=== PATIENT | male | born 1935 | race Caucasian/White ===

== ENCOUNTER 2017-03-18 16:06 | Inpatient (IN) | payer MEDICARE, MEDICAID ==
[2017-03-18 16:06] VITALS: BMI 33.4
[2017-03-18] MEDS ORDERED: Piperacill/Tazo 3.375gm in Dex 3.375 GM/50 ML BAG IVPB STA (16:26)
--- NOTE | 2017-03-18 16:44 | ED PDOC ---
HPI: General Adult Time Seen by Provider: 03/18/17 16:15 Chief Complaint (Nursing): Lower Extremity Problem/Injury History Per: Patient Additional Complaint(s): Pt. with his son in ED and states they were sent to ED by Dr. Cuellar from his office as pt. has osteomyelitis on the L foot. Pt. has had worsening ulcer. Denies fever, trauma. Past Medical History Reviewed: Historical Data, Nursing Documentation, Vital Signs Vital Signs: Last Vital Signs Temp 96.9 F L 03/18/17 16:08 Pulse 113 H 03/18/17 16:08 Resp 16 03/18/17 16:08 BP 149/65 03/18/17 16:08 Pulse Ox 97 03/18/17 19:16 - Medical History PMH: Arthritis, CAD, Diabetes, HTN, Hypercholesterolemia, Hypothyroidism Denies: Chronic Kidney Disease - Surgical History Surgical History: Cholecystectomy - Family History Family History: States: Unknown Family Hx - Immunization History Hx Tetanus Toxoid Vaccination: No Hx Influenza Vaccination: No Hx Pneumococcal Vaccination: No - Home Medications Home Medications: Ambulatory Orders Medication Instructions Recorded Aspirin [Ecotrin] 81 mg PO DAILY 03/18/17 Ergocalciferol (Vitamin D2) 50,000 unit PO FR 03/18/17 [Vitamin D2] Furosemide [Lasix] 20 mg PO DAILY 03/18/17 Levothyroxine [Synthroid] 100 mcg PO DAILY 03/18/17 Losartan [Cozaar] 100 mcg PO DAILY 03/18/17 Metoprolol Tartrate [Lopressor] 12.5 mg PO Q12H 03/18/17 Rosuvastatin Calcium [Crestor] 10 mg PO HS 03/18/17 Ticagrelor [Brilinta] 90 mg PO BID 03/18/17 metFORMIN [glucOPHAGE] 850 mg PO BID 03/18/17 - Allergies Allergies/Adverse Reactions: Allergies Allergy/AdvReac Type Severity Reaction Status Date / Time No Known Allergies Allergy Verified 10/21/16 18:17 Review of Systems ROS Statement: Except As Marked, All Systems Reviewed And Found Negative Physical Exam - Reviewed Nursing Documentation Reviewed: Yes Vital Signs Reviewed: Yes - Physical Exam Appears: Positive for: Well, Non-toxic, No Acute Distress Head Exam: Positive for: ATRAUMATIC, NORMAL INSPECTION, NORMOCEPHALIC Skin: Positive for: Normal Color, Warm. Negative for: Rash Eye Exam: Positive for: EOMI, Normal appearance, PERRL ENT: Positive for: Normal ENT Inspection Neck: Positive for: Normal, Painless ROM Cardiovascular/Chest: Positive for: Regular Rate, Rhythm Respiratory: Positive for: CNT, Normal Breath Sounds Pulses-Dorsalis Pedis (L): 2+ Pulses-Dorsalis Pedis (R): 2+ Gastrointestinal/Abdominal: Positive for: Normal Exam, Soft. Negative for: Tenderness Back: Positive for: Normal Inspection Extremity: Positive for: Other (L foot with all toes amputated; non-healing ulcer noted on L lateral distal foot with minimal surrounding erythema but no discharge; malodor noted) Neurologic/Psych: Positive for: Alert, Oriented - Laboratory Results Result Diagrams: 03/18/17 17:38 03/18/17 17:38 - ECG ECG: Positive for: Interpreted By Me ECG Rhythm: Positive for: Sinus Tachycardia. Negative for: ST/T Changes Rate: 101 O2 Sat by Pulse Oximetry: 97 - Progress ED Course And Treament: CXR: NAD, L foot x-ray: ? osteo on distal L 5th MTP Case d/w Dr. Sneed, pt.'s PMD is Dr. Patricia Wise, and arrangements made for admission. Pt. evaluated by [place], podiatry resident, who spoke with Dr. Cuellar who requests only Zosyn/Vancomycin and consults with Dr. Palma (ID) and Dr. Gibson ( vascular). Disposition - Clinical Impression Clinical Impression: Acute renal failure, Diabetic foot ulcer, Cellulitis - Patient ED Disposition Is Patient to be Admitted: Yes - Disposition Disposition Time: 18:24 Condition: STABLE
--- NOTE | 2017-03-18 17:13 | RAD ---
HISTORY: clearance COMPARISON: No prior. FINDINGS: LUNGS: The lungs are clear. PLEURA: No significant pleural effusion identified, no pneumothorax apparent. CARDIOVASCULAR: Normal. OSSEOUS STRUCTURES: No significant abnormalities. VISUALIZED UPPER ABDOMEN: Normal. OTHER FINDINGS: None. IMPRESSION: No active pulmonary disease.
--- NOTE | 2017-03-18 17:16 | RAD ---
PROCEDURE: Left Foot Radiographs. HISTORY: infection COMPARISON: None. 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 There is apparent lucency and cortical irregularity in the distal aspect of the 5th metatarsal. No acute fracture. JOINTS: Normal. SOFT TISSUES: There is moderate soft tissue swelling in the forefoot. OTHER FINDINGS: Atherosclerotic vascular calcifications are present. IMPRESSION: Question of osteomyelitis in the distal 5th metatarsal. Soft tissue swelling in the forefoot may represent cellulitis.
[2017-03-18 17:45] LABS: BASO # 0.1 K/uL (0.0-0.2); BASO % 0.7 % (0.0-2.0); EOS # 0.3 K/uL (0.0-0.7); EOS % 2.2 % (0.0-4.0); HEMATOCRIT 39.4 % (35.0-51.0); LYMPH # 3.2 K/uL (1.0-4.3); MEAN CELL VOLUME 71.6 fl (80.0-94.0); MEAN CORPUSCULAR HGB CONC 32.1 g/dL (33.0-37.0); MEAN PLATELET VOLUME 8.3 fl (7.2-11.7); MONO # 1.4 K/uL (0.0-0.8); MONO % 10.3 % (0.0-10.0); NEUT # 8.3 K/uL (1.8-7.0); NEUT % 62.8 % (50.0-75.0); NRBC % 0.1 % (0.0-0.0); RED CELL DISTRIBUTION WIDTH 16.3 % (11.5-14.5); WHITE BLOOD COUNT 13.2 K/uL (4.8-10.8)
[2017-03-18 17:49] LABS: VENOUS BLOOD GAS BASE EXCESS 0.8 mmol/L (0.0-2.0); VENOUS BLOOD GAS PCO2 46 mmHg (40-60); VENOUS BLOOD PH 7.37 (7.32-7.43)
[2017-03-18 18:02] LABS: BILIRUBIN,TOTAL 0.6 mg/dl (0.2-1.3); CALCIUM 9.6 mg/dL (8.4-10.2); POTASSIUM 4.1 MMOL/L (3.6-5.0)
--- NOTE | 2017-03-18 18:39 | CP.PCM.CON ---
History of Present Illness - History of Present Illness History of Present Illness: 81 year old male with PMH Arthritis, CAD, Diabetes, HTN, Hypercholesterolemia, Hypothyroidism sent to ED by Dr. Cuellar for OM of L foot secondary to infected ulceration. Patient is a poor historian and shows confusion with questioning. Per Dr. Cuellar, patient is to be admitted to floors for IV abx and possible surgical intervention. Past Patient History - Infectious Disease Hx of Infectious Diseases: None - Tetanus Immunizations Tetanus Immunization: Unknown - Past Medical History & Family History Past Medical History?: Yes - Past Social History Smoking Status: Former Smoker - CARDIAC Hx Hypercholesterolemia: Yes Hx Hypertension: Yes - PULMONARY Hx Respiratory Disorders: No - NEUROLOGICAL HX Cerebrovascular Accident: Yes - HEENT Hx HEENT Problems: Yes (glasses) Hx Cataracts: Yes (right) - RENAL Hx Chronic Kidney Disease: No - ENDOCRINE/METABOLIC Hx Hypothyroidism: Yes - HEMATOLOGICAL/ONCOLOGICAL Hx Blood Disorders: No - INTEGUMENTARY Hx Dermatological Problems: No - MUSCULOSKELETAL/RHEUMATOLOGICAL Hx Arthritis: Yes - GASTROINTESTINAL Hx Gastrointestinal Disorders: No - GENITOURINARY/GYNECOLOGICAL Hx Genitourinary Disorders: Yes (BPH) Hx Incontinence: Yes Hx Prostate Problems: Yes (prostate surgery in 2013) - PSYCHIATRIC Hx Substance Use: No - SURGICAL HISTORY Hx Cholecystectomy: Yes - ANESTHESIA Hx Anesthesia: Yes Hx Anesthesia Reactions: No Hx Malignant Hyperthermia: No Meds Allergies/Adverse Reactions: Allergies Allergy/AdvReac Type Severity Reaction Status Date / Time No Known Allergies Allergy Verified 10/21/16 18:17 Physical Exam - Constitutional Appears: Well, Non-toxic, No Acute Distress - Extremities Exam Additional comments: LE focused exam: Vasc: DP/PT pulses nonpalpable b/l. Skin temperature warm to cool from proximal to distal. CFT > 3 seconds. Edema noted to left foot at distal, lateral TMA site Neuro: Epicritic and protective sensation grossly diminished Derm: Open wound measuring approximately 2 cm x 3 cm x 0.3 cm noted to lateral left foot. Fibrous base noted with serous drainage. Mild malodor present. Erythematous periwound area noted. No undermining, tunneling, tracking or probe to bone detected. Second wound at coaptation line of L foot TMA noted distally. Wound is bleeding. Erythematous periwound area noted. No undermining, tunneling , tracking or probe to bone detected. MSK: POP noted to both wounds of left foot. Hx of TMA noted L foot - Neurological Exam Neurological exam: Alert - Psychiatric Exam Psychiatric exam: Normal Affect, Normal Mood Results - Vital Signs Recent Vital Signs: Last Vital Signs Temp 96.9 F L 03/18/17 16:08 Pulse 113 H 03/18/17 16:08 Resp 16 03/18/17 16:08 BP 149/65 03/18/17 16:08 Pulse Ox 97 03/18/17 18:24 - Labs Result Diagrams: 03/18/17 17:38 03/18/17 17:38 Labs: Laboratory Results - last 24 hr 03/18/17 03/18/17 03/18/17 17:38 17:38 17:46 WBC 13.2 H RBC 5.50 Hgb 12.6 Hct 39.4 MCV 71.6 L MCH 23.0 L MCHC 32.1 L RDW 16.3 H Plt Count 218 MPV 8.3 Neut % (Auto) 62.8 Lymph % (Auto) 24.0 [place] % (Auto) 10.3 H Eos % (Auto) 2.2 Baso % (Auto) 0.7 Neut # 8.3 H Lymph # 3.2 [place] # 1.4 H Eos # 0.3 Baso # 0.1 pO2 18 L VBG pH 7.37 VBG pCO2 46 VBG HCO3 23.6 VBG Total CO2 28.0 VBG O2 Sat (Calc) 30.3 L VBG Base Excess 0.8 VBG Potassium 4.1 Glucose 125 H Lactate 2.0 FiO2 21.0 Sodium 138 134.0 Potassium 4.1 Chloride 97 L 98.0 Carbon Dioxide 25 Anion Gap 20 BUN 71 H Creatinine 1.6 H Est GFR ( Amer) 50 Est GFR (Non-Af Amer) 42 Random Glucose 121 H Calcium 9.6 Total Bilirubin 0.6 AST 96 H ALT 93 H Alkaline Phosphatase 137 H Total Protein 9.0 H Albumin 4.5 Globulin 4.5 H Albumin/Globulin Ratio 1.0 Venous Blood Potassium 4.1 Assessment & Plan - Assessment and Plan (Free Text) Assessment: 81 year old male seen in ED for infected foot ulcerations of left foot with underlying OM of fifth digit Plan: Patient seen and evaluated at bedside WBC: 13.2, afebrile Plan discussed with attending Dr. Cuellar Xray of left foot reviewed: Possible OM seen in fifth metatarsal, no signs of soft tissue emphysema noted Wound cx taken left foot: pending Renal dose Zosyn started ID consult appreciated Vascular consult appreciated Arterial duplex ordered Patient to be admitted to floors Wound dressed with DSD Patient to be WB as tolerated to left side Podiatry will continue to follow while patient in house - Date & Time Date: 03/18/17 Time: 18:45
[2017-03-18] MEDS: Insulin Lispro (humaLOG) 100 Units/ml Inj SC SCH (22:46)
[2017-03-18] MEDS: Sodium Chloride 0.9% 1,000 ML IV SCH (23:14)
[2017-03-19] MEDS: Piperacillin/Tazobact 3.375 GM in Sodium Chloride 0.9% 100 ML IVPB SCH ×3 (01:02→16:19)
[2017-03-19] MEDS: Levothyroxine 100 MCG TAB PO SCH (06:34)
[2017-03-19] MEDS: Insulin Lispro (humaLOG) 100 Units/ml Inj SC SCH ×4 (06:34→22:25)
[2017-03-19 06:41] LABS: HEMATOCRIT 33.8 % (35.0-51.0); MEAN CELL VOLUME 71.6 fl (80.0-94.0); MEAN CORPUSCULAR HEMOGLOBIN 23.6 pg (27.0-31.0); RED CELL DISTRIBUTION WIDTH 16.2 % (11.5-14.5); WHITE BLOOD COUNT 9.3 K/uL (4.8-10.8)
[2017-03-19 07:42] LABS: BILIRUBIN,TOTAL 0.4 mg/dl (0.2-1.3); CALCIUM 9.1 mg/dL (8.4-10.2); POTASSIUM 3.3 MMOL/L (3.6-5.0); TOTAL PROTEIN 7.7 G/DL (6.3-8.2)
[2017-03-19 08:07] LABS: THYROID STIMULATING HORMONE 1.31 mIU/ML (0.46-4.68)
--- NOTE | 2017-03-19 09:53 | CP.PCM.PN ---
Subjective - Date & Time of Evaluation Date of Evaluation: 03/19/17 Time of Evaluation: 09:51 - Subjective Subjective: 81 year old male with PMH Arthritis, CAD, Diabetes, HTN, Hypercholesterolemia, Hypothyroidism seen at bedside for infected left foot ulceration with underlying OM of fifth metatarsal. Patient states that he is feeling well today and that the pain in his foot is still present but decreased from yesterday. Patient states that he slept well. He is AAO x 3 and NAD, resting comfortably in bed. He denies any N/V/F/C/CP/SOB/posterior calf pain. Patient denies any further pedal complaints at this time Objective - Vital Signs/Intake and Output Vital Signs (last 24 hours): Temp Pulse Resp BP Pulse Ox 97.8 F 75 20 145/77 94 L 03/19/17 08:05 03/19/17 08:24 03/19/17 08:05 03/19/17 08:24 03/19/17 08:05 - Medications Medications: Current Medications Acetaminophen (Tylenol 325mg Tab) 650 mg PO Q6 PRN PRN Reason: Fever >100.4 F Acetaminophen (Tylenol 325mg Tab) 650 mg PO Q6 PRN PRN Reason: Pain, Mild (1-3) Aspirin (Ecotrin) 81 mg PO DAILY [facility] Last Admin: 03/19/17 08:24 Dose: 81 mg Atorvastatin Calcium (Lipitor) 20 mg PO HS [facility] Last Admin: 03/18/17 23:13 Dose: 20 mg Ergocalciferol (Drisdol 50,000 Intl Units Cap) 1 cap PO FR JOSE ANTONIO Heparin Sodium (Porcine) (Heparin) 5,000 units SC Q8 JOSE ANTONIO PRN Reason: Protocol Last Admin: 03/19/17 08:26 Dose: 5,000 units Sodium Chloride (Sodium Chloride 0.9%) 1,000 mls @ 75 mls/hr IV .[id number] [facility] Stop: 03/19/17 22:38 Last Admin: 03/18/17 23:14 Dose: 75 mls/hr Piperacillin Sod/Tazobactam (Sod 3.375 gm/ Sodium Chloride) 100 mls @ 100 mls/ hr IVPB Q8 JOSE ANTONIO PRN Reason: Protocol Last Admin: 03/19/17 08:25 Dose: 100 mls/hr Vancomycin HCl 1 gm/ Sodium (Chloride) 250 mls @ 166.667 mls/hr IVPB DAILY [facility] PRN Reason: Protocol Insulin Human Lispro (Humalog) 0 units SC ACHS [facility] PRN Reason: Protocol Last Admin: 03/19/17 06:34 Dose: Not Given Levothyroxine Sodium (Synthroid) 100 mcg PO DAILY@0630 [facility] Last Admin: 03/19/17 06:34 Dose: Not Given Losartan Potassium (Cozaar) 100 mg PO DAILY [facility] Last Admin: 03/19/17 08:24 Dose: 100 mg Metoprolol Tartrate (Lopressor) 12.5 mg PO Q12H [facility] Last Admin: 03/18/17 23:13 Dose: 12.5 mg Ticagrelor (Brilinta) 90 mg PO BID [facility] Last Admin: 03/19/17 08:23 Dose: 90 mg - Labs Labs: 03/19/17 05:40 03/19/17 05:40 APTT 28.8 Seconds (25.6-37.1) 03/19/17 05:40 - Constitutional Appears: Well, Non-toxic, No Acute Distress - Extremities Exam Additional comments: LE focused exam: Vasc: DP/PT pulses nonpalpable b/l. Skin temperature warm to cool from proximal to distal. CFT > 3 seconds. Edema noted to left foot at distal, lateral TMA site Neuro: Epicritic and protective sensation grossly diminished Derm: Open wound measuring approximately 2 cm x 3 cm x 0.3 cm noted to lateral left foot. Fibrous base noted with serous drainage, decreased from last night. Mild malodor present. Erythematous periwound area noted. No undermining, tunneling, tracking or probe to bone detected. Second wound at coaptation line of L foot TMA noted distally. Wound is no longer bleeding. Erythematous periwound area noted. No undermining, tunneling, tracking or probe to bone detected. MSK: POP noted to both wounds of left foot. Hx of TMA noted L foot - Neurological Exam Neurological Exam: Alert, Awake, Oriented x3 - Psychiatric Exam Psychiatric exam: Normal Affect, Normal Mood Assessment and Plan - Assessment and Plan (Free Text) Assessment: 81 year old male seen in ED for infected foot ulcerations of left foot with underlying OM of fifth metatarsal Plan: Patient seen and evaluated at bedside WBC: trending down at 9.3 today, afebrile Plan discussed with attending Dr. Cuellar 03/18- Xray of left foot reviewed: Possible OM seen in fifth metatarsal, no signs of soft tissue emphysema noted 03/18- Wound cx taken left foot: pending Continue IV abx Vascular consult appreciated 03/18- Arterial duplex ordered: results pending Wound dressed with DSD Patient to be WB as tolerated to left side No surgical intervention planned at this time. Podiatry will continue to follow while patient in house
--- NOTE | 2017-03-19 11:45 | US ---
PROCEDURE: Duplex ultrasound of the left lower extremity arteries. HISTORY: infected diabetic foot ulcer, left COMPARISON: For yesterday left foot radiographs TECHNIQUE: Grayscale and duplex Doppler evaluation of the left common femoral, superficial femoral, popliteal, posterior tibial and dorsalis pedis arteries was performed.. FINDINGS: COMMON FEMORAL ARTERY: Patent. Maximal flow velocity of 36.5 cm/s. SUPERFICIAL FEMORAL ARTERY:Patent. Maximal flow velocity of 58.1 cm/s. POPLITEAL ARTERY:Patent. Maximal flow velocity of 12.8 cm/s. POSTERIOR TIBIAL ARTERY: Flow was not identified in the posterior tibial artery. Blood flow identified in the anterior tibial artery with the peak systolic velocity 22 centimeter/second. DORSALIS PEDIS ARTERY: Not visualized related to overlying bandages. OTHER FINDINGS: None. IMPRESSION: Low flow velocities, monophasic waveforms throughout the left lower extremity. The findings may be the sequela of inflow disease more proximally. . Flow could not be documented in the left posterior tibial artery. There is collateral flow in the anterior tibial artery. Limitations of the current examination: Nondiagnostic assessment of dorsalis pedis artery related to overlying bandages/dressings.
--- NOTE | 2017-03-19 12:13 | CP.PCM.CON ---
History of Present Illness - History of Present Illness History of Present Illness: I was asked to see patient Earlene Sneed. Patient is a 81 year old male with PMH CAD s/p PCI LAD/LCx in October, DM, HTN PAD who presents with ulceration of the fifth metatarsal. The patient is a poor historian. He has ahd attmepted intervention by Dr Pillai in October. He was referred for admission Earlene Cuellar due to the appearance of ulcer of the fifth metatarsal. Review of Systems - Constitutional Constitutional: absent: As Per HPI, Anorexia, Chills, Daytime Sleepiness, Excessive Sweating, Fatigue, Fever, Frequent Falls, Headache, Increased Appetite , Lethargy, Malaise, Night Sweats, Snoring, Sleep Apnea, Weight Gain, Weight Loss, Weakness, Other - EENT Eyes: absent: As Per HPI, Blind Spots, Blurred Vision, Change in Vision, Decreased Night Vision, Diplopia, Discharge, Dry Eye, Exophthalmos, Floaters, Irritation, Itchy Eyes, Loss of Peripheral Vision, Pain, Photophobia, Requires Corrective Lenses, Sees Flashes, Spots in Vision, Tunnel Vision, Other Visual Disturbances, Loss of Vision, Other Ears: absent: As Per HPI, Decreased Hearing, Ear Discharge, Ear Pain, Tinnitus, Abnormal Hearing, Disequilibrium, Dizziness, Other Nose/Mouth/Throat: absent: As Per HPI, Epistaxis, Nasal Congestion, Nasal Discharge, Nasal Obstruction, Nasal Trauma, Nose Pain, Post Nasal Drip, Sinus Pain, Sinus Pressure, Bleeding Gums, Change in Voice, Dental Pain, Dry Mouth, Dysphagia, Halitosis, Hoarsness, Lip Swelling, Mouth Lesions, Mouth Pain, Odynophagia, Sore Throat, Throat Swelling, Tongue Swelling, Facial Pain, Neck Pain, Neck Mass, Other - Cardiovascular Cardiovascular: absent: As Per HPI, Acrocyanosis, Chest Pain, Chest Pain at Rest , Chest Pain with Activity, Claudication, Diaphoresis, Dyspnea, Dyspnea on Exertion, Edema, Irregular Heart Rhythm, Pain Radiating to Arm/Neck/Jaw, Leg Edema, Leg Ulcers, Lightheadedness, Orthopnea, Palpitations, Paroxysmal Nocturnal Dyspnea, Pedal Edema, Radiating Pain, Rapid Heart Rate, Slow Heart Rate, Syncope, Other - Respiratory Respiratory: absent: As Per HPI, Cough, Dyspnea, Hemoptysis, Dyspnea on Exertion , Wheezing, Snoring, Stridor, Pain on Inspiration, Chest Congestion, Excessive Mucous Production, Change in Mucous Color, Pain with Coughing, Other - Gastrointestinal Gastrointestinal: absent: As Per HPI, Abdominal Pain, Belching, Bloating, Change in Bowel Habits, Change in Stool Character, Coffee Ground Emesis, Constipation, Cramping, Diarrhea, Dyspepsia, Dysphagia, Early Satiety, Excessive Flatus, Fecal Incontinence, Heartburn, Hematemesis, Hematochezia, Loose Stools, Melena, Nausea, Odynophagia, Temesmus, Vomiting, Other - Genitourinary Genitourinary: absent: As Per HPI, Change in Urinary Stream, Difficulty Urinating, Dysuria, Flank Pain, Hematuria, Pyuria, Nocturia, Urinary Incontinence, Urinary Frequency, Urinary Hesitance, Urinary Urgency, Voiding Freq/Small Amts, Freq UTI, Hx Renal/Bladder Calculi, Hx /Renal Surgery, Bladder Distension, Other - Musculoskeletal Musculoskeletal: Radiating Pain into Limb - Integumentary Integumentary: absent: As Per HPI, Acne, Alopecia, Bleeding Lesions, Change in Hair, Change in Nails, Change in Pigmentation, Changing Lesions, Dry Skin, Erythema, Furuncle, Hirsutism, Lesions, New Lesions, Non-Healing Lesions, Photosensitivity, Pruritus, Rash, Skin Pain, Skin Ulcer, Sores, Striae, Swelling , Unusual Bruising, Wounds, Jaundice, Other - Neurological Neurological: absent: As Per HPI, Abnormal Gait, Abnormal Hearing, Abnormal Movements, Abnormal Speech, Behavioral Changes, Burning Sensations, Confusion, Convulsions, Disequilibrium, Dizziness, Numbness, Focal Weakness, Frequent Falls , Headaches, Lack of Coordination, Loss of Vision, Memory Loss, Paresthesias, Radicular Pain, Restless Legs, Sensory Deficit, Syncope, Tingling, Tremor, Vertigo, Weakness, Other Visual Disturbances, Other - Psychiatric Psychiatric: absent: As Per HPI, Abnormal Sleep Pattern, Anhedonia, Anxiety, Auditory Hallucinations, Behavioral Changes, Change in Appetite, Change in Libido, Confusion, Depression, Difficulty Concentrating, Hallucinations, Homicidal Ideation, Hopelessness, Irritability, Memory Loss, Mood Swings, Panic Attacks, Paranoia, Suicidal Ideation, Visual Hallucinations, Tactile Hallucinations, Other - Endocrine Endocrine: absent: As Per HPI, Change in Body Appearance, Change in Libido, Cold Intolorance, Deepening of Voice, Excessive Sweating, Fatigue, Flushing, Heat Intolorance, Increase in Ring/Shoe/Hat Size, Palpitations, Polydipsia, Polyphagia, Polyuria, Other - Hematologic/Lymphatic Hematologic: absent: As Per HPI, Easy Bleeding, Easy Bruising, Lymphadenopathy, Other Past Patient History - Infectious Disease Hx of Infectious Diseases: None - Tetanus Immunizations Tetanus Immunization: Unknown - Past Medical History & Family History Past Medical History?: Yes - Past Social History Smoking Status: Never Smoked - CARDIAC Hx Cardiac Disorders: Yes Hx Congestive Heart Failure: Yes Hx Hypercholesterolemia: Yes Hx Hypertension: Yes Other/Comment: peripheral arterial dx - PULMONARY Hx Respiratory Disorders: No Hx Pneumonia: No - NEUROLOGICAL Hx Neurological Disorder: No - HEENT Hx HEENT Problems: Yes (glasses) Hx Cataracts: Yes (right eye) - RENAL Hx Chronic Kidney Disease: No - ENDOCRINE/METABOLIC Hx Endocrine Disorders: Yes Hx Diabetes Mellitus Type 2: Yes Hx Hypothyroidism: Yes - HEMATOLOGICAL/ONCOLOGICAL Hx Blood Disorders: No Hx AIDS: No Hx Hepatitis C: No Hx Human Immunodeficiency Virus (HIV): No - INTEGUMENTARY Hx Dermatological Problems: No - MUSCULOSKELETAL/RHEUMATOLOGICAL Hx Musculoskeletal Disorders: No Hx Falls: No (denies any hx of falls) Hx Fractures: No - GASTROINTESTINAL Hx Gastrointestinal Disorders: No - GENITOURINARY/GYNECOLOGICAL Hx Genitourinary Disorders: Yes (BPH) Hx Incontinence: Yes Hx Prostate Problems: Yes (prostate surgery in 2013) - PSYCHIATRIC Hx Psychophysiologic Disorder: No Hx Substance Use: No - SURGICAL HISTORY Hx Surgeries: Yes Hx Cholecystectomy: Yes Other/Comment: prostate surgery 2013, LEFT ft 1-4th digits amupatated - ANESTHESIA Hx Anesthesia: Yes Hx Anesthesia Reactions: No Hx Malignant Hyperthermia: No Meds Allergies/Adverse Reactions: Allergies Allergy/AdvReac Type Severity Reaction Status Date / Time No Known Allergies Allergy Verified 10/21/16 18:17 - Medications Medications: Current Medications Acetaminophen (Tylenol 325mg Tab) 650 mg PO Q6 PRN PRN Reason: Fever >100.4 F Acetaminophen (Tylenol 325mg Tab) 650 mg PO Q6 PRN PRN Reason: Pain, Mild (1-3) Aspirin (Ecotrin) 81 mg PO DAILY [facility] Last Admin: 03/19/17 08:24 Dose: 81 mg Atorvastatin Calcium (Lipitor) 20 mg PO HS [facility] Last Admin: 03/18/17 23:13 Dose: 20 mg Ergocalciferol (Drisdol 50,000 Intl Units Cap) 1 cap PO FR [facility] Heparin Sodium (Porcine) (Heparin) 5,000 units SC Q8 [facility] PRN Reason: Protocol Last Admin: 03/19/17 08:26 Dose: 5,000 units Sodium Chloride (Sodium Chloride 0.9%) 1,000 mls @ 75 mls/hr IV .[id number] [facility] Stop: 03/19/17 22:38 Last Admin: 03/18/17 23:14 Dose: 75 mls/hr Piperacillin Sod/Tazobactam (Sod 3.375 gm/ Sodium Chloride) 100 mls @ 100 mls/ hr IVPB Q8 [facility] PRN Reason: Protocol Last Admin: 03/19/17 08:25 Dose: 100 mls/hr Vancomycin HCl 1 gm/ Sodium (Chloride) 250 mls @ 166.667 mls/hr IVPB DAILY [facility] PRN Reason: Protocol Insulin Human Lispro (Humalog) 0 units SC ACHS [facility] PRN Reason: Protocol Last Admin: 03/19/17 06:34 Dose: Not Given Levothyroxine Sodium (Synthroid) 100 mcg PO DAILY@0630 [facility] Last Admin: 03/19/17 06:34 Dose: Not Given Losartan Potassium (Cozaar) 100 mg PO DAILY [facility] Last Admin: 03/19/17 08:24 Dose: 100 mg Metoprolol Tartrate (Lopressor) 12.5 mg PO Q12H [facility] Last Admin: 03/18/17 23:13 Dose: 12.5 mg Ticagrelor (Brilinta) 90 mg PO BID [facility] Last Admin: 03/19/17 08:23 Dose: 90 mg Physical Exam - Constitutional Appears: Non-toxic - Head Exam Head Exam: NORMAL INSPECTION - Eye Exam Eye Exam: Normal appearance - ENT Exam ENT Exam: Mucous Membranes Moist - Neck Exam Neck exam: Positive for: Full Rom - Respiratory Exam Respiratory Exam: NORMAL BREATHING PATTERN - Cardiovascular Exam Cardiovascular Exam: REGULAR RHYTHM - GI/Abdominal Exam GI & Abdominal Exam: Normal Bowel Sounds - Rectal Exam Rectal Exam: Deferred - Extremities Exam Additional comments: foot in dressing, heavily bandaged. - Back Exam Back exam: NORMAL INSPECTION - Neurological Exam Neurological exam: Alert - Psychiatric Exam Psychiatric exam: Normal Affect - Skin Skin Exam: Normal Color Results - Vital Signs Recent Vital Signs: Last Vital Signs Temp 97.8 F 03/19/17 08:05 Pulse 75 03/19/17 08:24 Resp 20 03/19/17 08:05 BP 145/77 03/19/17 08:24 Pulse Ox 94 L 03/19/17 08:05 - Labs Result Diagrams: 03/19/17 05:40 03/19/17 05:40 Labs: Laboratory Results - last 24 hr 03/18/17 03/18/17 03/18/17 17:38 17:38 17:46 WBC 13.2 H RBC 5.50 Hgb 12.6 Hct 39.4 MCV 71.6 L MCH 23.0 L MCHC 32.1 L RDW 16.3 H Plt Count 218 MPV 8.3 Neut % (Auto) 62.8 Lymph % (Auto) 24.0 Coal % (Auto) 10.3 H Eos % (Auto) 2.2 Baso % (Auto) 0.7 Neut # 8.3 H Lymph # 3.2 Coal # 1.4 H Eos # 0.3 Baso # 0.1 ESR APTT pO2 18 L VBG pH 7.37 VBG pCO2 46 VBG HCO3 23.6 VBG Total CO2 28.0 VBG O2 Sat (Calc) 30.3 L VBG Base Excess 0.8 VBG Potassium 4.1 Glucose 125 H Lactate 2.0 FiO2 21.0 Sodium 138 134.0 Potassium 4.1 Chloride 97 L 98.0 Carbon Dioxide 25 Anion Gap 20 BUN 71 H Creatinine 1.6 H Est GFR ( Amer) 50 Est GFR (Non-Af Amer) 42 POC Glucose (mg/dL) Random Glucose 121 H Calcium 9.6 Total Bilirubin 0.6 AST 96 H ALT 93 H Alkaline Phosphatase 137 H Total Protein 9.0 H Albumin 4.5 Globulin 4.5 H Albumin/Globulin Ratio 1.0 Triglycerides Cholesterol LDL Cholesterol Direct HDL Cholesterol TSH 3rd Generation Venous Blood Potassium 4.1 Blood Type Antibody Screen BBK History Checked 03/18/17 03/18/17 03/19/17 19:54 22:28 05:40 WBC RBC Hgb Hct MCV MCH MCHC RDW Plt Count MPV Neut % (Auto) Lymph % (Auto) Coal % (Auto) Eos % (Auto) Baso % (Auto) Neut # Lymph # Coal # Eos # Baso # ESR APTT 28.8 pO2 VBG pH VBG pCO2 VBG HCO3 VBG Total CO2 VBG O2 Sat (Calc) VBG Base Excess VBG Potassium Glucose Lactate FiO2 Sodium Potassium Chloride Carbon Dioxide Anion Gap BUN Creatinine Est GFR ( Amer) Est GFR (Non-Af Amer) POC Glucose (mg/dL) 134 H Random Glucose Calcium Total Bilirubin AST ALT Alkaline Phosphatase Total Protein Albumin Globulin Albumin/Globulin Ratio Triglycerides Cholesterol LDL Cholesterol Direct HDL Cholesterol TSH 3rd Generation Venous Blood Potassium Blood Type B POSITIVE Antibody Screen Negative BBK History Checked Patient has bt 03/19/17 03/19/17 03/19/17 05:40 05:40 05:57 WBC 9.3 RBC 4.73 Hgb 11.2 L Hct 33.8 L MCV 71.6 L MCH 23.6 L MCHC 33.0 RDW 16.2 H Plt Count 177 MPV Neut % (Auto) Lymph % (Auto) Coal % (Auto) Eos % (Auto) Baso % (Auto) Neut # Lymph # Coal # Eos # Baso # ESR 61 H APTT pO2 VBG pH VBG pCO2 VBG HCO3 VBG Total CO2 VBG O2 Sat (Calc) VBG Base Excess VBG Potassium Glucose Lactate FiO2 Sodium 138 Potassium 3.3 L Chloride 102 Carbon Dioxide 23 Anion Gap 16 BUN 66 H Creatinine 1.5 Est GFR ( Amer) 54 Est GFR (Non-Af Amer) 45 POC Glucose (mg/dL) 103 Random Glucose 124 H Calcium 9.1 Total Bilirubin 0.4 AST 70 H D ALT 76 H Alkaline Phosphatase 104 Total Protein 7.7 Albumin 3.8 Globulin 3.9 Albumin/Globulin Ratio 1.0 Triglycerides 111 Cholesterol 94 LDL Cholesterol Direct 33 HDL Cholesterol 28 L TSH 3rd Generation 1.31 Venous Blood Potassium Blood Type Antibody Screen BBK History Checked 03/19/17 12:08 WBC RBC Hgb Hct MCV MCH MCHC RDW Plt Count MPV Neut % (Auto) Lymph % (Auto) Coal % (Auto) Eos % (Auto) Baso % (Auto) Neut # Lymph # Coal # Eos # Baso # ESR APTT pO2 VBG pH VBG pCO2 VBG HCO3 VBG Total CO2 VBG O2 Sat (Calc) VBG Base Excess VBG Potassium Glucose Lactate FiO2 Sodium Potassium Chloride Carbon Dioxide Anion Gap BUN Creatinine Est GFR ( Amer) Est GFR (Non-Af Amer) POC Glucose (mg/dL) 128 H Random Glucose Calcium Total Bilirubin AST ALT Alkaline Phosphatase Total Protein Albumin Globulin Albumin/Globulin Ratio Triglycerides Cholesterol LDL Cholesterol Direct HDL Cholesterol TSH 3rd Generation Venous Blood Potassium Blood Type Antibody Screen BBK History Checked - EKG Data EKG Interpreted by: Myself Assessment & Plan (1) Diabetic foot ulcer Assessment and Plan: will need repeat arterial duplex. will hold off on contrast imaging at this time due to renal insufficiency Status: Acute (2) CKD (chronic kidney disease) stage 3, GFR 30-59 ml/min Assessment and Plan: follow creatinine Status: Acute (3) Coronary artery disease Assessment and Plan: s/p PCI LAD and LCx. continue ASA 81 mg daily, Brilinta 90 mg BID. Status: Chronic (4) Hypertension Assessment and Plan: medical therapy Status: Chronic Priority: Low
[2017-03-19] MEDS: Sodium Chloride 0.9% 1,000 ML IV SCH (16:18)
--- NOTE | 2017-03-19 19:14 | CP.PCM.CON ---
History of Present Illness - History of Present Illness History of Present Illness: chart reviewed consult to follow Past Patient History - Infectious Disease Hx of Infectious Diseases: None - Tetanus Immunizations Tetanus Immunization: Unknown - Past Medical History & Family History Past Medical History?: Yes - Past Social History Smoking Status: Never Smoked - CARDIAC Hx Cardiac Disorders: Yes Hx Congestive Heart Failure: Yes Hx Hypercholesterolemia: Yes Hx Hypertension: Yes Other/Comment: peripheral arterial dx - PULMONARY Hx Respiratory Disorders: No Hx Pneumonia: No - NEUROLOGICAL Hx Neurological Disorder: No - HEENT Hx HEENT Problems: Yes (glasses) Hx Cataracts: Yes (right eye) - RENAL Hx Chronic Kidney Disease: No - ENDOCRINE/METABOLIC Hx Endocrine Disorders: Yes Hx Diabetes Mellitus Type 2: Yes Hx Hypothyroidism: Yes - HEMATOLOGICAL/ONCOLOGICAL Hx Blood Disorders: No Hx AIDS: No Hx Hepatitis C: No Hx Human Immunodeficiency Virus (HIV): No - INTEGUMENTARY Hx Dermatological Problems: No - MUSCULOSKELETAL/RHEUMATOLOGICAL Hx Musculoskeletal Disorders: No Hx Falls: No (denies any hx of falls) Hx Fractures: No - GASTROINTESTINAL Hx Gastrointestinal Disorders: No - GENITOURINARY/GYNECOLOGICAL Hx Genitourinary Disorders: Yes (BPH) Hx Incontinence: Yes Hx Prostate Problems: Yes (prostate surgery in 2013) - PSYCHIATRIC Hx Psychophysiologic Disorder: No Hx Substance Use: No - SURGICAL HISTORY Hx Surgeries: Yes Hx Cholecystectomy: Yes Other/Comment: prostate surgery 2013, LEFT ft 1-4th digits amupatated - ANESTHESIA Hx Anesthesia: Yes Hx Anesthesia Reactions: No Hx Malignant Hyperthermia: No Meds Allergies/Adverse Reactions: Allergies Allergy/AdvReac Type Severity Reaction Status Date / Time No Known Allergies Allergy Verified 10/21/16 18:17 - Medications Medications: Current Medications Acetaminophen (Tylenol 325mg Tab) 650 mg PO Q6 PRN PRN Reason: Fever >100.4 F Acetaminophen (Tylenol 325mg Tab) 650 mg PO Q6 PRN PRN Reason: Pain, Mild (1-3) Aspirin (Ecotrin) 81 mg PO DAILY [facility] Last Admin: 03/19/17 08:24 Dose: 81 mg Atorvastatin Calcium (Lipitor) 20 mg PO HS [facility] Last Admin: 03/18/17 23:13 Dose: 20 mg Ergocalciferol (Drisdol 50,000 Intl Units Cap) 1 cap PO FR [facility] Heparin Sodium (Porcine) (Heparin) 5,000 units SC Q8 [facility] PRN Reason: Protocol Last Admin: 03/19/17 16:21 Dose: 5,000 units Sodium Chloride (Sodium Chloride 0.9%) 1,000 mls @ 75 mls/hr IV .[id number] [facility] Stop: 03/19/17 22:38 Last Admin: 03/19/17 16:18 Dose: 75 mls/hr Piperacillin Sod/Tazobactam (Sod 3.375 gm/ Sodium Chloride) 100 mls @ 100 mls/ hr IVPB Q8 [facility] PRN Reason: Protocol Last Admin: 03/19/17 16:19 Dose: 100 mls/hr Vancomycin HCl 1 gm/ Sodium (Chloride) 250 mls @ 166.667 mls/hr IVPB DAILY [facility] PRN Reason: Protocol Insulin Human Lispro (Humalog) 0 units SC ACHS [facility] PRN Reason: Protocol Last Admin: 03/19/17 16:30 Dose: Not Given Levothyroxine Sodium (Synthroid) 100 mcg PO DAILY@0630 [facility] Last Admin: 03/19/17 06:34 Dose: Not Given Losartan Potassium (Cozaar) 100 mg PO DAILY [facility] Last Admin: 03/19/17 08:24 Dose: 100 mg Metoprolol Tartrate (Lopressor) 12.5 mg PO Q12H [facility] Last Admin: 03/19/17 11:30 Dose: 12.5 mg Ticagrelor (Brilinta) 90 mg PO BID [facility] Last Admin: 03/19/17 16:21 Dose: 90 mg Results - Vital Signs Recent Vital Signs: Last Vital Signs Temp 98.3 F 03/19/17 17:00 Pulse 72 03/19/17 16:28 Resp 18 03/19/17 16:28 BP 138/75 03/19/17 16:28 Pulse Ox 95 03/19/17 16:28 - Labs Result Diagrams: 03/19/17 05:40 03/19/17 05:40 Labs: Laboratory Results - last 24 hr 03/18/17 03/18/17 03/19/17 19:54 22:28 05:40 WBC RBC Hgb Hct MCV MCH MCHC RDW Plt Count ESR APTT 28.8 Sodium Potassium Chloride Carbon Dioxide Anion Gap BUN Creatinine Est GFR ( Amer) Est GFR (Non-Af Amer) POC Glucose (mg/dL) 134 H Random Glucose Hemoglobin A1c Calcium Total Bilirubin AST ALT Alkaline Phosphatase Total Protein Albumin Globulin Albumin/Globulin Ratio Triglycerides Cholesterol LDL Cholesterol Direct HDL Cholesterol TSH 3rd Generation Blood Type B POSITIVE Antibody Screen Negative BBK History Checked Patient has bt 03/19/17 03/19/17 03/19/17 05:40 05:40 05:57 WBC 9.3 RBC 4.73 Hgb 11.2 L Hct 33.8 L MCV 71.6 L MCH 23.6 L MCHC 33.0 RDW 16.2 H Plt Count 177 ESR 61 H APTT Sodium 138 Potassium 3.3 L Chloride 102 Carbon Dioxide 23 Anion Gap 16 BUN 66 H Creatinine 1.5 Est GFR ( Amer) 54 Est GFR (Non-Af Amer) 45 POC Glucose (mg/dL) 103 Random Glucose 124 H Hemoglobin A1c Calcium 9.1 Total Bilirubin 0.4 AST 70 H D ALT 76 H Alkaline Phosphatase 104 Total Protein 7.7 Albumin 3.8 Globulin 3.9 Albumin/Globulin Ratio 1.0 Triglycerides 111 Cholesterol 94 LDL Cholesterol Direct 33 HDL Cholesterol 28 L TSH 3rd Generation 1.31 Blood Type Antibody Screen BBK History Checked 03/19/17 03/19/17 03/19/17 06:53 12:08 16:09 WBC RBC Hgb Hct MCV MCH MCHC RDW Plt Count ESR APTT Sodium Potassium Chloride Carbon Dioxide Anion Gap BUN Creatinine Est GFR ( Amer) Est GFR (Non-Af Amer) POC Glucose (mg/dL) 128 H 137 H Random Glucose Hemoglobin A1c 6.8 H Calcium Total Bilirubin AST ALT Alkaline Phosphatase Total Protein Albumin Globulin Albumin/Globulin Ratio Triglycerides Cholesterol LDL Cholesterol Direct HDL Cholesterol TSH 3rd Generation Blood Type Antibody Screen BBK History Checked
--- NOTE | 2017-03-19 21:29 | CP.PCM.HP ---
Past Patient History - Infectious Disease Hx of Infectious Diseases: None - Tetanus Immunizations Tetanus Immunization: Unknown - Past Medical History & Family History Past Medical History?: Yes - Past Social History Smoking Status: Never Smoked - CARDIAC Hx Cardiac Disorders: Yes Hx Congestive Heart Failure: Yes Hx Hypercholesterolemia: Yes Hx Hypertension: Yes Other/Comment: peripheral arterial dx - PULMONARY Hx Respiratory Disorders: No Hx Pneumonia: No - NEUROLOGICAL Hx Neurological Disorder: No - HEENT Hx HEENT Problems: Yes (glasses) Hx Cataracts: Yes (right eye) - RENAL Hx Chronic Kidney Disease: No - ENDOCRINE/METABOLIC Hx Endocrine Disorders: Yes Hx Diabetes Mellitus Type 2: Yes Hx Hypothyroidism: Yes - HEMATOLOGICAL/ONCOLOGICAL Hx Blood Disorders: No Hx AIDS: No Hx Hepatitis C: No Hx Human Immunodeficiency Virus (HIV): No - INTEGUMENTARY Hx Dermatological Problems: No - MUSCULOSKELETAL/RHEUMATOLOGICAL Hx Musculoskeletal Disorders: No Hx Falls: No (denies any hx of falls) Hx Fractures: No - GASTROINTESTINAL Hx Gastrointestinal Disorders: No - GENITOURINARY/GYNECOLOGICAL Hx Genitourinary Disorders: Yes (BPH) Hx Incontinence: Yes Hx Prostate Problems: Yes (prostate surgery in 2013) - PSYCHIATRIC Hx Psychophysiologic Disorder: No Hx Substance Use: No - SURGICAL HISTORY Hx Surgeries: Yes Hx Cholecystectomy: Yes Other/Comment: prostate surgery 2013, LEFT ft 1-4th digits amupatated - ANESTHESIA Hx Anesthesia: Yes Hx Anesthesia Reactions: No Hx Malignant Hyperthermia: No Meds Allergies/Adverse Reactions: Allergies Allergy/AdvReac Type Severity Reaction Status Date / Time No Known Allergies Allergy Verified 10/21/16 18:17 Results - Vital Signs Recent Vital Signs: Last Vital Signs Temp 98.3 F 03/19/17 17:00 Pulse 72 03/19/17 16:28 Resp 18 03/19/17 16:28 BP 138/75 03/19/17 16:28 Pulse Ox 95 03/19/17 16:28 - Labs Result Diagrams: 03/19/17 05:40 03/19/17 05:40 Labs: Laboratory Results - last 24 hr 03/18/17 03/19/17 03/19/17 22:28 05:40 05:40 WBC 9.3 RBC 4.73 Hgb 11.2 L Hct 33.8 L MCV 71.6 L MCH 23.6 L MCHC 33.0 RDW 16.2 H Plt Count 177 ESR 61 H APTT 28.8 Sodium Potassium Chloride Carbon Dioxide Anion Gap BUN Creatinine Est GFR ( Amer) Est GFR (Non-Af Amer) POC Glucose (mg/dL) 134 H Random Glucose Hemoglobin A1c Calcium Total Bilirubin AST ALT Alkaline Phosphatase Total Protein Albumin Globulin Albumin/Globulin Ratio Triglycerides Cholesterol LDL Cholesterol Direct HDL Cholesterol TSH 3rd Generation 03/19/17 03/19/17 03/19/17 05:40 05:57 06:53 WBC RBC Hgb Hct MCV MCH MCHC RDW Plt Count ESR APTT Sodium 138 Potassium 3.3 L Chloride 102 Carbon Dioxide 23 Anion Gap 16 BUN 66 H Creatinine 1.5 Est GFR ( Amer) 54 Est GFR (Non-Af Amer) 45 POC Glucose (mg/dL) 103 Random Glucose 124 H Hemoglobin A1c 6.8 H Calcium 9.1 Total Bilirubin 0.4 AST 70 H D ALT 76 H Alkaline Phosphatase 104 Total Protein 7.7 Albumin 3.8 Globulin 3.9 Albumin/Globulin Ratio 1.0 Triglycerides 111 Cholesterol 94 LDL Cholesterol Direct 33 HDL Cholesterol 28 L TSH 3rd Generation 1.31 03/19/17 03/19/17 03/19/17 12:08 16:09 20:49 WBC RBC Hgb Hct MCV MCH MCHC RDW Plt Count ESR APTT Sodium Potassium Chloride Carbon Dioxide Anion Gap BUN Creatinine Est GFR ( Amer) Est GFR (Non-Af Amer) POC Glucose (mg/dL) 128 H 137 H 121 H Random Glucose Hemoglobin A1c Calcium Total Bilirubin AST ALT Alkaline Phosphatase Total Protein Albumin Globulin Albumin/Globulin Ratio Triglycerides Cholesterol LDL Cholesterol Direct HDL Cholesterol TSH 3rd Generation
--- NOTE | 2017-03-19 22:07 | CARD ---
APPROVED REPORT EKG Measurement Heart [id number] <Conclusion> Sinus tachycardia Possible Left atrial enlargement Left ventricular hypertrophy with repolarization abnormality Abnormal ECG
[2017-03-20] MEDS: Piperacillin/Tazobact 3.375 GM in Sodium Chloride 0.9% 100 ML IVPB SCH ×3 (00:34→16:24)
[2017-03-20] MEDS: Levothyroxine 100 MCG TAB PO SCH (06:02)
[2017-03-20] MEDS: Insulin Lispro (humaLOG) 100 Units/ml Inj SC SCH ×4 (06:34→22:23)
--- NOTE | 2017-03-20 09:36 | CP.PCM.PN ---
Subjective - Date & Time of Evaluation Date of Evaluation: 03/20/17 Time of Evaluation: 09:34 - Subjective Subjective: 81 year old male with PMH Arthritis, CAD, Diabetes, HTN, Hypercholesterolemia, Hypothyroidism seen at bedside for infected left foot ulceration with underlying OM of fifth metatarsal. Patient states that he is feeling well today and that the pain in his foot is still present but decreased from yesterday. Patient is found sleeping soundly in bed at time of visit. He is AAO x 3 and NAD , resting comfortably in bed. He denies any N/V/F/C/CP/SOB/posterior calf pain. Patient denies any further pedal complaints at this time Objective - Vital Signs/Intake and Output Vital Signs (last 24 hours): Temp Pulse Resp BP Pulse Ox 97.9 F 78 20 171/72 H 96 03/20/17 07:56 03/20/17 09:13 03/20/17 07:56 03/20/17 09:13 03/20/17 07:56 - Medications Medications: Current Medications Acetaminophen (Tylenol 325mg Tab) 650 mg PO Q6 PRN PRN Reason: Fever >100.4 F Acetaminophen (Tylenol 325mg Tab) 650 mg PO Q6 PRN PRN Reason: Pain, Mild (1-3) Last Admin: 03/20/17 00:28 Dose: 650 mg Aspirin (Ecotrin) 81 mg PO DAILY [facility] Last Admin: 03/20/17 09:14 Dose: 81 mg Atorvastatin Calcium (Lipitor) 20 mg PO HS [facility] Last Admin: 03/19/17 21:21 Dose: 20 mg Ergocalciferol (Drisdol 50,000 Intl Units Cap) 1 cap PO FR [facility] Heparin Sodium (Porcine) (Heparin) 5,000 units SC Q8 [facility] PRN Reason: Protocol Last Admin: 03/20/17 09:14 Dose: 5,000 units Piperacillin Sod/Tazobactam (Sod 3.375 gm/ Sodium Chloride) 100 mls @ 100 mls/ hr IVPB Q8 [facility] PRN Reason: Protocol Last Admin: 03/20/17 00:34 Dose: 100 mls/hr Vancomycin HCl 1 gm/ Sodium (Chloride) 250 mls @ 166.667 mls/hr IVPB DAILY@ 2200 [facility] PRN Reason: Protocol Last Admin: 03/19/17 23:04 Dose: 166.667 mls/hr Insulin Human Lispro (Humalog) 0 units SC ACHS [facility] PRN Reason: Protocol Last Admin: 03/20/17 06:34 Dose: Not Given Levothyroxine Sodium (Synthroid) 100 mcg PO DAILY@0630 [facility] Last Admin: 03/20/17 06:02 Dose: 100 mcg Losartan Potassium (Cozaar) 100 mg PO DAILY [facility] Last Admin: 03/20/17 09:13 Dose: 100 mg Metoprolol Tartrate (Lopressor) 12.5 mg PO Q12H [facility] Last Admin: 03/19/17 22:24 Dose: 12.5 mg Mupirocin (Bactroban Ointment) 1 applic TOP BID [facility] Ticagrelor (Brilinta) 90 mg PO BID [facility] Last Admin: 03/20/17 09:13 Dose: 90 mg - Labs Labs: 03/19/17 05:40 03/19/17 05:40 APTT 28.8 Seconds (25.6-37.1) 03/19/17 05:40 - Constitutional Appears: Well, Non-toxic, No Acute Distress - Extremities Exam Additional comments: LE focused exam: Vasc: DP/PT pulses nonpalpable b/l. Skin temperature warm to cool from proximal to distal. CFT > 3 seconds. Edema noted to left foot at distal, lateral TMA site , improving Neuro: Epicritic and protective sensation grossly diminished Derm: Open wound measuring approximately 2 cm x 3 cm x 0.3 cm noted to lateral left foot. Fibrous base noted with serous drainage, decreased from last night. Mild malodor present. Erythematous periwound area noted. No undermining, tunneling, tracking or probe to bone detected. Second wound at coaptation line of L foot TMA noted distally. Wound appears to be healing. Erythematous periwound area no longer noted. No undermining, tunneling, tracking or probe to bone detected. MSK: POP noted to both wounds of left foot. Hx of TMA noted L foot - Neurological Exam Neurological Exam: Alert, Awake, Oriented x3 - Psychiatric Exam Psychiatric exam: Normal Affect, Normal Mood Assessment and Plan - Assessment and Plan (Free Text) Assessment: 81 year old male seen in ED for infected foot ulcerations of left foot with underlying OM of fifth metatarsal Plan: Patient seen and evaluated at bedside Charts, labs and vitals reviewed Plan discussed with attending Dr. Cuellar 03/18- Xray of left foot reviewed: Possible OM seen in fifth metatarsal, no signs of soft tissue emphysema noted 03/18- Wound cx taken left foot: pending Continue IV abx Per Dr. Gibson, arterial duplex must be retaken. Ordered at this time Wound dressed with xeroform, DSD Patient to be WB as tolerated to left side No surgical intervention planned at this time, until vascular studies concluded Podiatry will continue to follow while patient in house
[2017-03-20 10:32] LABS: RBC URINE < 1 /hpf (0-3); URINE BILIRUBIN NEGATIVE (NEGATIVE); URINE BLOOD NEGATIVE (NEGATIVE); URINE COLOR YELLOW (YELLOW); URINE GLUCOSE (UA) NEG (Normal); URINE KETONE NEGATIVE (NEGATIVE); URINE LEUKOCYTE ESTERASE NEG Leu/uL (Negative); URINE PROTEIN NEGATIVE (NEGATIVE); URINE UROBILINOGEN 0.2-1.0 mg/dL (0.2-1.0); WBC URINE < 1 /hpf (0-5)
[2017-03-20 10:44] LABS: HEMATOCRIT 34.6 % (35.0-51.0); MEAN CORPUSCULAR HEMOGLOBIN 22.9 pg (27.0-31.0); MEAN CORPUSCULAR HGB CONC 31.4 g/dL (33.0-37.0); RED CELL DISTRIBUTION WIDTH 16.4 % (11.5-14.5)
[2017-03-20 10:57] LABS: BLOOD UREA NITROGEN 47 mg/dl (9-20); CALCIUM 8.7 mg/dL (8.4-10.2); CARBON DIOXIDE 24 mmol/L (22-30); CHLORIDE 103 mmol/L (98-107); GFR AFRICAN-AMERICAN > 60; GLUCOSE,RANDOM 146 mg/dL (75-110); POTASSIUM 3.9 MMOL/L (3.6-5.0); SODIUM 138 mmol/l (132-148)
--- NOTE | 2017-03-20 11:06 | PQF GENQUE ---
This form is a permanent part of the medical record 03/18/17 Dr. Cuellar, OSTEOMYELITIS is documented in the Medical Record. Please specify the acuity of this condition with terms such as: Acute Chronic Acute and chronic Acute on chronic Other (please specify in the medical record) Clinically unable to further specify Unknown Patient with a history of DM is sent to the ER for OM of L foot secondary to infected ulceration. Foot xray: ? of osteomyelitis in the distal 5th metatarsal. Soft tissue swelling in the forefoot may represent cellulitis. Awaiting L arterial duplex results. Treated with Vancomycin and Zosyn IV. Clarification of your documentation is requested to better reflect the severity of illness and intensity of treatment of your patient. Indicators present [] Specify: [] [] Specify: [] [] Specify: [] [] Specify: [] Location in the medical record that reflects the above clinical findings: [] Treatment Provided: [] PHYSICIAN'S RESPONSE Based on your medical judgment of the clinical indicators outlined above please clarify the following: [] Practitioner response [] If unable to determine, please check the box, sign and date. Present On Admission (POA) Indicator: [] Present at the time of admission [] Not present at the time of admission [] Clinically Undetermined In responding to this query, please exercise your independent professional judgment. The fact that a question is asked does not imply that any particular answer is desired or expected. Thank you for your clarification on this documentation. If you have any questions please call:ext [phone] * Thank you, Bryanna Lawton RN [facility]
--- NOTE | 2017-03-20 11:14 | PQF GENQUE ---
This form is a permanent part of the medical record 03/20/17 Dr Cuellar, 1. Please document cause or type of skin ulcer: Non-pressure ulcer associated with: Atherosclerosis of lower extremities Chronic venous hypertension Diabetes Postphlebitic syndrome Postthrombotic syndrome Varicose veins Other (please specify) Unknown Other (please specify) Clinically unable to determine Unknown 2. Please document severity of non-pressure ulcer: Limited to breakdown of skin With fat layer exposure With necrosis of muscle With necrosis of bone Unspecified Clinically unable to determine Unknown 3. Please document specific site of skin ulcer, including laterality 4. Please document any associated infectious process associated with ulcer including infectious organism if known Patient with a history of DM is sent to the ER for OM of L foot secondary to infected ulceration. Foot xray: ? of osteomyelitis in the distal 5th metatarsal. Soft tissue swelling in the forefoot may represent cellulitis. Podiatry assessment: Neuro: Epicritic and protective sensation grossly diminished Derm: Open wound measuring approximately 2 cm x 3 cm x 0.3 cm noted to lateral left foot. Fibrous base noted with serous drainage. Mild malodor present. Erythematous periwound area noted. No undermining, tunneling, tracking or probe to bone detected. Second wound at coaptation line of L foot TMA noted distally. Wound is bleeding. Erythematous periwound area noted. No undermining, tunneling , tracking or probe to bone detected. Treated with IVAB and wound dressed with DSD. Clarification of your documentation is requested to better reflect the severity of illness and intensity of treatment of your patient. Indicators present [] Specify: [] [] Specify: [] [] Specify: [] [] Specify: [] Location in the medical record that reflects the above clinical findings: [] Treatment Provided: [] PHYSICIAN'S RESPONSE Based on your medical judgment of the clinical indicators outlined above please clarify the following: [] Practitioner response [] If unable to determine, please check the box, sign and date. Present On Admission (POA) Indicator: [] Present at the time of admission [] Not present at the time of admission [] Clinically Undetermined In responding to this query, please exercise your independent professional judgment. The fact that a question is asked does not imply that any particular answer is desired or expected. Thank you for your clarification on this documentation. If you have any questions please call:ext [phone] * Thank you, Bryanna Lawton RN [facility]
--- NOTE | 2017-03-20 13:11 | CP.PCM.CON ---
History of Present Illness - History of Present Illness History of Present Illness: Patient is a 81 year old male with PMH CAD s/p PCI LAD/LCx in October, DM, HTN PAD who presents with ulceration of the fifth metatarsal. Diagnosed with OM left foot by Dr Cuellar and referred for ID eval by Dr Sneed for antibioitic rx Was started on Vanco/zosyn pending cultures Seen by Interventional cardiology prior to OR - to eval cardiac condition and vasculature prior to OR denies fever chills cough chest pain or SOB No signs of systemic sepsis / SIRS - Medical History PMH: Arthritis, CAD, Diabetes, HTN, Hypercholesterolemia, Hypothyroidism Denies: Chronic Kidney Disease Review of Systems - Constitutional Constitutional: As Per HPI, Malaise. absent: Fever - EENT Eyes: absent: As Per HPI, Blind Spots, Blurred Vision, Change in Vision, Decreased Night Vision, Diplopia, Discharge, Dry Eye, Exophthalmos, Floaters, Irritation, Itchy Eyes, Loss of Peripheral Vision, Pain, Photophobia, Requires Corrective Lenses, Sees Flashes, Spots in Vision, Tunnel Vision, Other Visual Disturbances, Loss of Vision, Other Ears: absent: As Per HPI, Decreased Hearing, Ear Discharge, Ear Pain, Tinnitus, Abnormal Hearing, Disequilibrium, Dizziness, Other Nose/Mouth/Throat: absent: As Per HPI, Epistaxis, Nasal Congestion, Nasal Discharge, Nasal Obstruction, Nasal Trauma, Nose Pain, Post Nasal Drip, Sinus Pain, Sinus Pressure, Bleeding Gums, Change in Voice, Dental Pain, Dry Mouth, Dysphagia, Halitosis, Hoarsness, Lip Swelling, Mouth Lesions, Mouth Pain, Odynophagia, Sore Throat, Throat Swelling, Tongue Swelling, Facial Pain, Neck Pain, Neck Mass, Other - Cardiovascular Cardiovascular: As Per HPI - Respiratory Respiratory: absent: As Per HPI, Cough, Dyspnea, Hemoptysis, Dyspnea on Exertion , Wheezing, Snoring, Stridor, Pain on Inspiration, Chest Congestion, Excessive Mucous Production, Change in Mucous Color, Pain with Coughing, Other - Gastrointestinal Gastrointestinal: absent: As Per HPI, Abdominal Pain, Belching, Bloating, Change in Bowel Habits, Change in Stool Character, Coffee Ground Emesis, Constipation, Cramping, Diarrhea, Dyspepsia, Dysphagia, Early Satiety, Excessive Flatus, Fecal Incontinence, Heartburn, Hematemesis, Hematochezia, Loose Stools, Melena, Nausea, Odynophagia, Temesmus, Vomiting, Other - Genitourinary Genitourinary: absent: As Per HPI, Change in Urinary Stream, Difficulty Urinating, Dysuria, Flank Pain, Hematuria, Pyuria, Nocturia, Urinary Incontinence, Urinary Frequency, Urinary Hesitance, Urinary Urgency, Voiding Freq/Small Amts, Freq UTI, Hx Renal/Bladder Calculi, Hx /Renal Surgery, Bladder Distension, Other - Musculoskeletal Musculoskeletal: As Per HPI, Radiating Pain into Limb - Integumentary Integumentary: As Per HPI, Skin Pain, Wounds - Neurological Neurological: absent: As Per HPI, Abnormal Gait, Abnormal Hearing, Abnormal Movements, Abnormal Speech, Behavioral Changes, Burning Sensations, Confusion, Convulsions, Disequilibrium, Dizziness, Numbness, Focal Weakness, Frequent Falls , Headaches, Lack of Coordination, Loss of Vision, Memory Loss, Paresthesias, Radicular Pain, Restless Legs, Sensory Deficit, Syncope, Tingling, Tremor, Vertigo, Weakness, Other Visual Disturbances, Other - Psychiatric Psychiatric: absent: As Per HPI, Abnormal Sleep Pattern, Anhedonia, Anxiety, Auditory Hallucinations, Behavioral Changes, Change in Appetite, Change in Libido, Confusion, Depression, Difficulty Concentrating, Hallucinations, Homicidal Ideation, Hopelessness, Irritability, Memory Loss, Mood Swings, Panic Attacks, Paranoia, Suicidal Ideation, Visual Hallucinations, Tactile Hallucinations, Other - Endocrine Endocrine: absent: As Per HPI, Change in Body Appearance, Change in Libido, Cold Intolorance, Deepening of Voice, Excessive Sweating, Fatigue, Flushing, Heat Intolorance, Increase in Ring/Shoe/Hat Size, Palpitations, Polydipsia, Polyphagia, Polyuria, Other - Hematologic/Lymphatic Hematologic: absent: As Per HPI, Easy Bleeding, Easy Bruising, Lymphadenopathy, Other Past Patient History - Infectious Disease Hx of Infectious Diseases: None - Tetanus Immunizations Tetanus Immunization: Unknown - Past Medical History & Family History Past Medical History?: Yes - Past Social History Smoking Status: Never Smoked - CARDIAC Hx Cardiac Disorders: Yes Hx Congestive Heart Failure: Yes Hx Hypercholesterolemia: Yes Hx Hypertension: Yes Other/Comment: peripheral arterial dx - PULMONARY Hx Respiratory Disorders: No Hx Pneumonia: No - NEUROLOGICAL Hx Neurological Disorder: No - HEENT Hx HEENT Problems: Yes (glasses) Hx Cataracts: Yes (right eye) - RENAL Hx Chronic Kidney Disease: No - ENDOCRINE/METABOLIC Hx Endocrine Disorders: Yes Hx Diabetes Mellitus Type 2: Yes Hx Hypothyroidism: Yes - HEMATOLOGICAL/ONCOLOGICAL Hx Blood Disorders: No Hx AIDS: No Hx Hepatitis C: No Hx Human Immunodeficiency Virus (HIV): No - INTEGUMENTARY Hx Dermatological Problems: No - MUSCULOSKELETAL/RHEUMATOLOGICAL Hx Musculoskeletal Disorders: No Hx Falls: No (denies any hx of falls) Hx Fractures: No - GASTROINTESTINAL Hx Gastrointestinal Disorders: No - GENITOURINARY/GYNECOLOGICAL Hx Genitourinary Disorders: Yes (BPH) Hx Incontinence: Yes Hx Prostate Problems: Yes (prostate surgery in 2013) - PSYCHIATRIC Hx Psychophysiologic Disorder: No Hx Substance Use: No - SURGICAL HISTORY Hx Surgeries: Yes Hx Cholecystectomy: Yes Other/Comment: prostate surgery 2013, LEFT ft 1-4th digits amupatated - ANESTHESIA Hx Anesthesia: Yes Hx Anesthesia Reactions: No Hx Malignant Hyperthermia: No Meds Allergies/Adverse Reactions: Allergies Allergy/AdvReac Type Severity Reaction Status Date / Time No Known Allergies Allergy Verified 10/21/16 18:17 - Medications Medications: Current Medications Acetaminophen (Tylenol 325mg Tab) 650 mg PO Q6 PRN PRN Reason: Fever >100.4 F Acetaminophen (Tylenol 325mg Tab) 650 mg PO Q6 PRN PRN Reason: Pain, Mild (1-3) Last Admin: 03/20/17 00:28 Dose: 650 mg Aspirin (Ecotrin) 81 mg PO DAILY [facility] Last Admin: 03/20/17 09:14 Dose: 81 mg Atorvastatin Calcium (Lipitor) 20 mg PO HS [facility] Last Admin: 03/19/17 21:21 Dose: 20 mg Ergocalciferol (Drisdol 50,000 Intl Units Cap) 1 cap PO FR [facility] Heparin Sodium (Porcine) (Heparin) 5,000 units SC Q8 [facility] PRN Reason: Protocol Last Admin: 03/20/17 09:14 Dose: 5,000 units Piperacillin Sod/Tazobactam (Sod 3.375 gm/ Sodium Chloride) 100 mls @ 100 mls/ hr IVPB Q8 [facility] PRN Reason: Protocol Last Admin: 03/20/17 10:32 Dose: 100 mls/hr Vancomycin HCl 1 gm/ Sodium (Chloride) 250 mls @ 166.667 mls/hr IVPB DAILY@ 2200 [facility] PRN Reason: Protocol Last Admin: 03/19/17 23:04 Dose: 166.667 mls/hr Insulin Human Lispro (Humalog) 0 units SC ACHS [facility] PRN Reason: Protocol Last Admin: 03/20/17 12:41 Dose: 1 unit Levothyroxine Sodium (Synthroid) 100 mcg PO DAILY@0630 [facility] Last Admin: 03/20/17 06:02 Dose: 100 mcg Losartan Potassium (Cozaar) 100 mg PO DAILY [facility] Last Admin: 03/20/17 09:13 Dose: 100 mg Metoprolol Tartrate (Lopressor) 12.5 mg PO Q12@1000,2200 [facility] Last Admin: 03/20/17 10:34 Dose: 12.5 mg Mupirocin (Bactroban Ointment) 1 applic TOP BID [facility] Last Admin: 03/20/17 11:36 Dose: Not Given Ticagrelor (Brilinta) 90 mg PO BID [facility] Last Admin: 03/20/17 09:13 Dose: 90 mg Physical Exam - Constitutional Appears: Non-toxic, Cachectic, Chronically Ill - Head Exam Head Exam: ATRAUMATIC, NORMAL INSPECTION, NORMOCEPHALIC - Eye Exam Eye Exam: PERRL. absent: Scleral icterus - ENT Exam ENT Exam: Mucous Membranes Dry, Normal External Ear Exam, Normal Oropharynx - Neck Exam Neck exam: Negative for: Lymphadenopathy, Thyromegaly - Respiratory Exam Respiratory Exam: Decreased Breath Sounds, Clear to Auscultation Bilateral - Cardiovascular Exam Cardiovascular Exam: REGULAR RHYTHM, +S1, +S2 - GI/Abdominal Exam GI & Abdominal Exam: Diminished Bowel Sounds, Distended, Soft. absent: Rebound , Rigid, Tenderness - Rectal Exam Rectal Exam: Deferred - Exam Exam: NORMAL INSPECTION - Extremities Exam Extremities exam: Positive for: pedal edema. Negative for: calf tenderness, normal capillary refill, normal inspection, pedal pulses present Additional comments: LE focused exam: Vasc: DP/PT pulses nonpalpable b/l. Skin temperature warm to cool from proximal to distal. CFT > 3 seconds. Edema noted to left foot at distal, lateral TMA site , improving Neuro: Epicritic and protective sensation grossly diminished Derm: Open wound measuring approximately 2 cm x 3 cm x 0.3 cm noted to lateral left foot. Fibrous base noted with serous drainage, decreased from last night. Mild malodor present. Erythematous periwound area noted. No undermining, tunneling, tracking or probe to bone detected. Second wound at coaptation line of L foot TMA noted distally. Wound appears to be healing. Erythematous periwound area no longer noted. No undermining, tunneling, tracking or probe to bone detected. MSK: POP noted to both wounds of left foot. Hx of TMA noted L foot - Back Exam Back exam: absent: CVA tenderness (L), CVA tenderness (R) - Neurological Exam Neurological exam: Alert, CN II-XII Intact, Oriented x3, Reflexes Normal - Psychiatric Exam Psychiatric exam: Depressed - Skin Skin Exam: Dry Results - Vital Signs Recent Vital Signs: Last Vital Signs Temp 97.9 F 03/20/17 07:56 Pulse 64 03/20/17 10:34 Resp 20 03/20/17 07:56 BP 118/67 03/20/17 10:34 Pulse Ox 96 03/20/17 07:56 - Labs Result Diagrams: 03/20/17 10:30 03/20/17 10:30 Labs: Laboratory Results - last 24 hr 03/19/17 03/19/17 03/19/17 06:53 16:09 20:49 WBC RBC Hgb Hct MCV MCH MCHC RDW Plt Count Sodium Potassium Chloride Carbon Dioxide Anion Gap BUN Creatinine Est GFR ( Amer) Est GFR (Non-Af Amer) POC Glucose (mg/dL) 137 H 121 H Random Glucose Hemoglobin A1c 6.8 H Calcium Urine Color Urine Clarity Urine pH Ur Specific [place] Urine Protein Urine Glucose (UA) Urine Ketones Urine Blood Urine Nitrate Urine Bilirubin Urine Urobilinogen Ur Leukocyte Esterase Urine RBC (Auto) Urine Microscopic WBC 03/20/17 03/20/17 03/20/17 06:18 09:45 10:30 WBC 7.0 RBC 4.74 Hgb 10.9 L Hct 34.6 L MCV 73.0 L MCH 22.9 L MCHC 31.4 L RDW 16.4 H Plt Count 150 Sodium Potassium Chloride Carbon Dioxide Anion Gap BUN Creatinine Est GFR ( Amer) Est GFR (Non-Af Amer) POC Glucose (mg/dL) 119 H Random Glucose Hemoglobin A1c Calcium Urine Color Yellow Urine Clarity Clear Urine pH 5.0 Ur Specific [place] 1.016 Urine Protein Negative Urine Glucose (UA) Neg Urine Ketones Negative Urine Blood Negative Urine Nitrate Negative Urine Bilirubin Negative Urine Urobilinogen 0.2-1.0 Ur Leukocyte Esterase Neg Urine RBC (Auto) < 1 Urine Microscopic WBC < 1 03/20/17 03/20/17 10:30 11:33 WBC RBC Hgb Hct MCV MCH MCHC RDW Plt Count Sodium 138 Potassium 3.9 Chloride 103 Carbon Dioxide 24 Anion Gap 14 BUN 47 H Creatinine 1.3 Est GFR ( Amer) > 60 Est GFR (Non-Af Amer) 53 POC Glucose (mg/dL) 155 H Random Glucose 146 H Hemoglobin A1c Calcium 8.7 Urine Color Urine Clarity Urine pH Ur Specific [place] Urine Protein Urine Glucose (UA) Urine Ketones Urine Blood Urine Nitrate Urine Bilirubin Urine Urobilinogen Ur Leukocyte Esterase Urine RBC (Auto) Urine Microscopic WBC Assessment & Plan (1) Cellulitis Status: Acute (2) Diabetic foot ulcer Status: Acute - Assessment and Plan (Free Text) Assessment: Has had Pseudomonas and enterococcus from wound in past affecting organism unclear also had + Blood for ESBL in past seconadary to biliary infection will adjust IV antibiotics may need Bone culture/ Biopsy
--- NOTE | 2017-03-20 15:14 | US ---
PROCEDURE: Duplex ultrasound of the left lower extremity arteries. HISTORY: assess vascular patency LLE, ulcer and OM L foot COMPARISON: March 19, 2017. TECHNIQUE: Grayscale and duplex Doppler evaluation of the left common femoral, superficial femoral, popliteal, posterior tibial and dorsalis pedis arteries was performed.. FINDINGS: COMMON FEMORAL ARTERY: Patent. Maximal flow velocity of 93.6 cm/s. SUPERFICIAL FEMORAL ARTERY:Patent. Maximal flow velocity of 71 cm/s. POPLITEAL ARTERY:Patent. Maximal flow velocity of 33.0 cm/s. POSTERIOR TIBIAL ARTERY: Patent. Maximal flow velocity of 15.6 cm/s. DORSALIS PEDIS ARTERY: Patent. Maximal flow velocity of 15.1 cm/s. OTHER FINDINGS: Documentation of stent in the left superficial femoral artery. IMPRESSION: Evidence of improved flow including increased proximal peak systolic velocities. On the prior study, Flow was not documented in the left posterior tibial artery. The prior state was nondiagnostic with respect seen dorsalis pedis artery. Flow can be demonstrated in the dorsalis pedis artery.
--- NOTE | 2017-03-20 18:25 | CP.PCM.PN ---
Subjective - Date & Time of Evaluation Date of Evaluation: 03/20/17 Time of Evaluation: 17:30 - Subjective Subjective: no new complaints. Objective - Vital Signs/Intake and Output Vital Signs (last 24 hours): Temp Pulse Resp BP Pulse Ox 97.6 F 77 18 145/57 L 100 03/20/17 16:12 03/20/17 16:12 03/20/17 16:12 03/20/17 16:12 03/20/17 16:12 - Medications Medications: Current Medications Acetaminophen (Tylenol 325mg Tab) 650 mg PO Q6 PRN PRN Reason: Fever >100.4 F Acetaminophen (Tylenol 325mg Tab) 650 mg PO Q6 PRN PRN Reason: Pain, Mild (1-3) Last Admin: 03/20/17 00:28 Dose: 650 mg Aspirin (Ecotrin) 81 mg PO DAILY [facility] Last Admin: 03/20/17 09:14 Dose: 81 mg Atorvastatin Calcium (Lipitor) 20 mg PO HS [facility] Last Admin: 03/19/17 21:21 Dose: 20 mg Ergocalciferol (Drisdol 50,000 Intl Units Cap) 1 cap PO FR [facility] Heparin Sodium (Porcine) (Heparin) 5,000 units SC Q8 [facility] PRN Reason: Protocol Last Admin: 03/20/17 16:24 Dose: 5,000 units Piperacillin Sod/Tazobactam (Sod 3.375 gm/ Sodium Chloride) 100 mls @ 100 mls/ hr IVPB Q8 [facility] PRN Reason: Protocol Last Admin: 03/20/17 16:24 Dose: 100 mls/hr Vancomycin HCl 1 gm/ Sodium (Chloride) 250 mls @ 166.667 mls/hr IVPB DAILY@ 2200 [facility] PRN Reason: Protocol Last Admin: 03/19/17 23:04 Dose: 166.667 mls/hr Insulin Human Lispro (Humalog) 0 units SC ACHS [facility] PRN Reason: Protocol Last Admin: 03/20/17 16:44 Dose: Not Given Levothyroxine Sodium (Synthroid) 100 mcg PO DAILY@0630 [facility] Last Admin: 03/20/17 06:02 Dose: 100 mcg Losartan Potassium (Cozaar) 100 mg PO DAILY [facility] Last Admin: 03/20/17 09:13 Dose: 100 mg Metoprolol Tartrate (Lopressor) 12.5 mg PO Q12@1000,2200 [facility] Last Admin: 03/20/17 10:34 Dose: 12.5 mg Mupirocin (Bactroban Ointment) 1 applic TOP BID [facility] Last Admin: 03/20/17 18:07 Dose: Not Given Ticagrelor (Brilinta) 90 mg PO BID [facility] Last Admin: 03/20/17 16:24 Dose: 90 mg - Labs Labs: 03/20/17 10:30 03/20/17 10:30 APTT 28.8 Seconds (25.6-37.1) 03/19/17 05:40 - Constitutional Appears: Non-toxic - Head Exam Head Exam: NORMAL INSPECTION - Eye Exam Eye Exam: Normal appearance - ENT Exam ENT Exam: Mucous Membranes Moist - Neck Exam Neck Exam: Full ROM - Respiratory Exam Respiratory Exam: Decreased Breath Sounds - Cardiovascular Exam Cardiovascular Exam: REGULAR RHYTHM - GI/Abdominal Exam GI & Abdominal Exam: Normal Bowel Sounds - Rectal Exam Rectal Exam: Deferred - Extremities Exam Extremities Exam: absent: Pedal Edema - Back Exam Back Exam: NORMAL INSPECTION - Neurological Exam Neurological Exam: Alert - Psychiatric Exam Psychiatric exam: Normal Affect - Skin Skin Exam: Normal Color Assessment and Plan (1) Diabetic foot ulcer Assessment & Plan: arteril duplex shows apparent improvement from previous study. There is a patent stent in the L SFA and the dorsalis pedis is now visualized. Recommend continued antiplatelet therapy. no endovascular procedure is planned at this time. Status: Acute (2) CKD (chronic kidney disease) stage 3, GFR 30-59 ml/min Status: Acute (3) Coronary artery disease Status: Chronic (4) Hypertension Status: Chronic
[2017-03-20] MEDS: Sodium Chloride 0.9% 1,000 ML IV SCH (22:22)
[2017-03-20] MEDS ORDERED: Ergocalciferol 50,000 Intl Units Cap PO SCH (22:30)
--- NOTE | 2017-03-21 00:32 | CP.PCM.PN ---
Subjective - Date & Time of Evaluation Date of Evaluation: 03/20/17 Time of Evaluation: 12:55 Objective - Vital Signs/Intake and Output Vital Signs (last 24 hours): Temp Pulse Resp BP Pulse Ox 98.4 F 65 20 135/72 99 03/21/17 00:21 03/21/17 00:21 03/21/17 00:21 03/21/17 00:21 03/21/17 00:21 - Medications Medications: Current Medications Acetaminophen (Tylenol 325mg Tab) 650 mg PO Q6 PRN PRN Reason: Fever >100.4 F Acetaminophen (Tylenol 325mg Tab) 650 mg PO Q6 PRN PRN Reason: Pain, Mild (1-3) Last Admin: 03/20/17 20:39 Dose: 650 mg Aspirin (Ecotrin) 81 mg PO DAILY [facility] Last Admin: 03/20/17 09:14 Dose: 81 mg Atorvastatin Calcium (Lipitor) 20 mg PO HS [facility] Last Admin: 03/20/17 21:27 Dose: 20 mg Ergocalciferol (Drisdol 50,000 Intl Units Cap) 1 cap PO FR [facility] Last Admin: 03/20/17 21:29 Dose: 1 cap Heparin Sodium (Porcine) (Heparin) 5,000 units SC Q8 [facility] PRN Reason: Protocol Last Admin: 03/20/17 16:24 Dose: 5,000 units Piperacillin Sod/Tazobactam (Sod 3.375 gm/ Sodium Chloride) 100 mls @ 100 mls/ hr IVPB Q8 [facility] PRN Reason: Protocol Last Admin: 03/20/17 16:24 Dose: 100 mls/hr Vancomycin HCl 1 gm/ Sodium (Chloride) 250 mls @ 166.667 mls/hr IVPB DAILY@ 2200 [facility] PRN Reason: Protocol Last Admin: 03/20/17 23:07 Dose: 166.667 mls/hr Sodium Chloride (Sodium Chloride 0.9%) 1,000 mls @ 75 mls/hr IV .[id number] [facility] Stop: 03/21/17 21:05 Last Admin: 03/20/17 22:22 Dose: 75 mls/hr Insulin Human Lispro (Humalog) 0 units SC ACHS [facility] PRN Reason: Protocol Last Admin: 03/20/17 22:23 Dose: Not Given Levothyroxine Sodium (Synthroid) 100 mcg PO DAILY@0630 [facility] Last Admin: 03/20/17 06:02 Dose: 100 mcg Losartan Potassium (Cozaar) 100 mg PO DAILY [facility] Last Admin: 03/20/17 09:13 Dose: 100 mg Metoprolol Tartrate (Lopressor) 12.5 mg PO Q12@1000,2200 [facility] Last Admin: 03/20/17 21:26 Dose: 12.5 mg Mupirocin (Bactroban Ointment) 1 applic TOP DAILY [facility] Ticagrelor (Brilinta) 90 mg PO BID [facility] Last Admin: 03/20/17 16:24 Dose: 90 mg Tramadol HCl (Ultram) 50 mg PO Q6 PRN PRN Reason: Pain, severe (8-10) Last Admin: 03/20/17 23:11 Dose: 50 mg - Labs Labs: 03/20/17 10:30 03/20/17 10:30 APTT 28.8 Seconds (25.6-37.1) 03/19/17 05:40
[2017-03-21] MEDS: Piperacillin/Tazobact 3.375 GM in Sodium Chloride 0.9% 100 ML IVPB SCH ×2 (01:04→10:39)
[2017-03-21] MEDS: Levothyroxine 100 MCG TAB PO SCH (06:53)
[2017-03-21] MEDS: Insulin Lispro (humaLOG) 100 Units/ml Inj SC SCH ×4 (07:43→21:48)
--- NOTE | 2017-03-21 09:23 | CP.PCM.PN ---
<Thompson Cuellar - Last Filed: 03/21/17 09:22> Subjective - Date & Time of Evaluation Date of Evaluation: 03/21/17 Time of Evaluation: 09:22 - Subjective Subjective: pt seen on rounds for ulcer and om left foot .No procedure planned by Dr. Gibson. Objective - Vital Signs/Intake and Output Vital Signs (last 24 hours): Temp Pulse Resp BP Pulse Ox 97.4 F L 65 18 153/60 H 95 03/21/17 07:32 03/21/17 07:32 03/21/17 07:32 03/21/17 07:32 03/21/17 07:32 - Medications Medications: Current Medications Acetaminophen (Tylenol 325mg Tab) 650 mg PO Q6 PRN PRN Reason: Fever >100.4 F Acetaminophen (Tylenol 325mg Tab) 650 mg PO Q6 PRN PRN Reason: Pain, Mild (1-3) Last Admin: 03/20/17 20:39 Dose: 650 mg Aspirin (Ecotrin) 81 mg PO DAILY [facility] Last Admin: 03/20/17 09:14 Dose: 81 mg Atorvastatin Calcium (Lipitor) 20 mg PO HS [facility] Last Admin: 03/20/17 21:27 Dose: 20 mg Ergocalciferol (Drisdol 50,000 Intl Units Cap) 1 cap PO FR [facility] Last Admin: 03/20/17 21:29 Dose: 1 cap Heparin Sodium (Porcine) (Heparin) 5,000 units SC Q8 [facility] PRN Reason: Protocol Last Admin: 03/21/17 01:05 Dose: 5,000 units Piperacillin Sod/Tazobactam (Sod 3.375 gm/ Sodium Chloride) 100 mls @ 100 mls/ hr IVPB Q8 [facility] PRN Reason: Protocol Last Admin: 03/21/17 01:04 Dose: 100 mls/hr Vancomycin HCl 1 gm/ Sodium (Chloride) 250 mls @ 166.667 mls/hr IVPB DAILY@ 2200 [facility] PRN Reason: Protocol Last Admin: 03/20/17 23:07 Dose: 166.667 mls/hr Sodium Chloride (Sodium Chloride 0.9%) 1,000 mls @ 75 mls/hr IV .[id number] [facility] Stop: 03/21/17 21:05 Last Admin: 03/20/17 22:22 Dose: 75 mls/hr Insulin Human Lispro (Humalog) 0 units SC ACHS [facility] PRN Reason: Protocol Last Admin: 03/21/17 07:43 Dose: Not Given Levothyroxine Sodium (Synthroid) 100 mcg PO DAILY@0630 [facility] Last Admin: 03/21/17 06:53 Dose: 100 mcg Losartan Potassium (Cozaar) 100 mg PO DAILY [facility] Last Admin: 03/20/17 09:13 Dose: 100 mg Metoprolol Tartrate (Lopressor) 12.5 mg PO Q12@1000,2200 [facility] Last Admin: 03/20/17 21:26 Dose: 12.5 mg Mupirocin (Bactroban Ointment) 1 applic TOP DAILY [facility] Ticagrelor (Brilinta) 90 mg PO BID [facility] Last Admin: 03/20/17 16:24 Dose: 90 mg Tramadol HCl (Ultram) 50 mg PO Q6 PRN PRN Reason: Pain, severe (8-10) Last Admin: 03/20/17 23:11 Dose: 50 mg - Labs Labs: 03/20/17 10:30 03/20/17 10:30 APTT 28.8 Seconds (25.6-37.1) 03/19/17 05:40 <Miriam Walker - Last Filed: 03/21/17 11:42> Subjective - Subjective Subjective: 81 year old male seen at bedside with attending, Dr. Cuellar for infected left foot ulceration with underlying OM of fifth metatarsal. Patient states that he is feeling well today and that the pain in his foot is still present but decreased from yesterday. He is AAO x 3 and NAD, resting comfortably in bed. Denies any n/v/f/c/sob/cp. Objective - Vital Signs/Intake and Output Vital Signs (last 24 hours): Temp Pulse Resp BP Pulse Ox 97.4 F L 62 18 153/60 H 95 03/21/17 07:32 03/21/17 10:33 03/21/17 07:32 03/21/17 10:33 03/21/17 07:32 - Medications Medications: Current Medications Acetaminophen (Tylenol 325mg Tab) 650 mg PO Q6 PRN PRN Reason: Fever >100.4 F Acetaminophen (Tylenol 325mg Tab) 650 mg PO Q6 PRN PRN Reason: Pain, Mild (1-3) Last Admin: 03/20/17 20:39 Dose: 650 mg Aspirin (Ecotrin) 81 mg PO DAILY [facility] Last Admin: 03/21/17 10:34 Dose: 81 mg Atorvastatin Calcium (Lipitor) 20 mg PO HS [facility] Last Admin: 03/20/17 21:27 Dose: 20 mg Ergocalciferol (Drisdol 50,000 Intl Units Cap) 1 cap PO FR [facility] Last Admin: 03/20/17 21:29 Dose: 1 cap Heparin Sodium (Porcine) (Heparin) 5,000 units SC Q8 [facility] PRN Reason: Protocol Last Admin: 03/21/17 10:34 Dose: 5,000 units Piperacillin Sod/Tazobactam (Sod 3.375 gm/ Sodium Chloride) 100 mls @ 100 mls/ hr IVPB Q8 [facility] PRN Reason: Protocol Last Admin: 03/21/17 10:39 Dose: 100 mls/hr Vancomycin HCl 1 gm/ Sodium (Chloride) 250 mls @ 166.667 mls/hr IVPB DAILY@ 2200 [facility] PRN Reason: Protocol Last Admin: 03/20/17 23:07 Dose: 166.667 mls/hr Sodium Chloride (Sodium Chloride 0.9%) 1,000 mls @ 75 mls/hr IV .[id number] [facility] Stop: 03/21/17 21:05 Last Admin: 03/21/17 10:34 Dose: 75 mls/hr Insulin Human Lispro (Humalog) 0 units SC ACHS [facility] PRN Reason: Protocol Last Admin: 03/21/17 07:43 Dose: Not Given Levothyroxine Sodium (Synthroid) 100 mcg PO DAILY@0630 [facility] Last Admin: 03/21/17 06:53 Dose: 100 mcg Losartan Potassium (Cozaar) 100 mg PO DAILY [facility] Last Admin: 03/21/17 10:33 Dose: 100 mg Metoprolol Tartrate (Lopressor) 12.5 mg PO Q12@1000,2200 [facility] Last Admin: 03/21/17 10:32 Dose: 12.5 mg Mupirocin (Bactroban Ointment) 1 applic TOP DAILY [facility] Last Admin: 03/21/17 10:31 Dose: 1 applic Ticagrelor (Brilinta) 90 mg PO BID [facility] Last Admin: 03/21/17 10:31 Dose: 90 mg Tramadol HCl (Ultram) 50 mg PO Q6 PRN PRN Reason: Pain, severe (8-10) Last Admin: 03/20/17 23:11 Dose: 50 mg - Labs Labs: 03/20/17 10:30 03/20/17 10:30 APTT 28.8 Seconds (25.6-37.1) 03/19/17 05:40 - Constitutional Appears: Non-toxic, No Acute Distress - Extremities Exam Additional comments: Left LE focused exam: Vasc: DP and PT pulses nonpalpable. Skin temperature warm to cool from proximal to distal. CFT > 3 seconds. Edema noted to left foot at distal, lateral TMA site , improving Neuro: Epicritic and protective sensation grossly diminished Derm: Necrotic eschar measuring approximately 2 cm x 3 cm x 0.3 cm noted to lateral left foot. Erythematous periwound area noted. No undermining, tunneling , tracking or probe to bone detected. Second wound at coaptation line of L foot TMA noted distally. Wound appears to be healing. Erythematous periwound area no longer noted. No undermining, tunneling, tracking or probe to bone detected. MSK: POP noted to both wounds of left foot. Hx of TMA noted L foot - Neurological Exam Neurological Exam: Alert, Awake, Oriented x3 - Psychiatric Exam Psychiatric exam: Normal Affect, Normal Mood Assessment and Plan - Assessment and Plan (Free Text) Assessment: 81 year old male with infected foot ulcerations of left foot with underlying OM of fifth metatarsal Plan: Patient seen and evaluated at bedside with attending Dr. Cuellar Charts, labs and vitals reviewed 03/18- Xray of left foot reviewed: Possible OM seen in fifth metatarsal, no signs of soft tissue emphysema noted 03/18- Wound cx taken left foot: ESBL Continue IV abx per ID Wound dressed with xeroform, DSD patient to have offloading boots at all times Patient to be WB as tolerated to left side Patient to have bone biopsy and possible debridement in [place] this week Podiatry will continue to follow while patient in house
[2017-03-21] MEDS: Sodium Chloride 0.9% 1,000 ML IV SCH (10:34)
[2017-03-21] MEDS ORDERED: Meropenem 500 MG in Sodium Chloride 0.9% 100 ML IVPB SCH ×2 (11:45→17:45)
--- NOTE | 2017-03-22 | CP.PCM.PN ---
Objective - Vital Signs/Intake and Output Vital Signs (last 24 hours): Temp Pulse Resp BP Pulse Ox 98.6 F 82 18 141/62 96 03/21/17 15:46 03/21/17 22:14 03/21/17 15:46 03/21/17 22:14 03/21/17 15:46 - Medications Medications: Current Medications Acetaminophen (Tylenol 325mg Tab) 650 mg PO Q6 PRN PRN Reason: Fever >100.4 F Acetaminophen (Tylenol 325mg Tab) 650 mg PO Q6 PRN PRN Reason: Pain, Mild (1-3) Last Admin: 03/20/17 20:39 Dose: 650 mg Aspirin (Ecotrin) 81 mg PO DAILY [facility] Last Admin: 03/21/17 10:34 Dose: 81 mg Atorvastatin Calcium (Lipitor) 20 mg PO HS [facility] Last Admin: 03/21/17 22:14 Dose: 20 mg Ergocalciferol (Drisdol 50,000 Intl Units Cap) 1 cap PO FR [facility] Last Admin: 03/20/17 21:29 Dose: 1 cap Heparin Sodium (Porcine) (Heparin) 5,000 units SC Q8 [facility] PRN Reason: Protocol Last Admin: 03/21/17 17:09 Dose: 5,000 units Vancomycin HCl 1 gm/ Sodium (Chloride) 250 mls @ 166.667 mls/hr IVPB DAILY@ 2200 [facility] PRN Reason: Protocol Last Admin: 03/21/17 22:14 Dose: 166.667 mls/hr Meropenem 500 mg/ Sodium (Chloride) 100 mls @ 100 mls/hr IVPB Q8@0400,1200, 2000 [facility] PRN Reason: Protocol Insulin Human Lispro (Humalog) 0 units SC ACHS [facility] PRN Reason: Protocol Last Admin: 03/21/17 21:48 Dose: Not Given Levothyroxine Sodium (Synthroid) 100 mcg PO DAILY@0630 [facility] Last Admin: 03/21/17 06:53 Dose: 100 mcg Losartan Potassium (Cozaar) 100 mg PO DAILY [facility] Last Admin: 03/21/17 10:33 Dose: 100 mg Metoprolol Tartrate (Lopressor) 12.5 mg PO Q12@1000,2200 [facility] Last Admin: 03/21/17 22:14 Dose: 12.5 mg Mupirocin (Bactroban Ointment) 1 applic TOP DAILY [facility] Last Admin: 03/21/17 10:31 Dose: 1 applic Ticagrelor (Brilinta) 90 mg PO BID [facility] Last Admin: 03/21/17 17:09 Dose: 90 mg Tramadol HCl (Ultram) 50 mg PO Q6 PRN PRN Reason: Pain, severe (8-10) Last Admin: 03/21/17 20:47 Dose: 50 mg - Labs Labs: 03/20/17 10:30 03/20/17 10:30 APTT 28.8 Seconds (25.6-37.1) 03/19/17 05:40
[2017-03-22] MEDS ORDERED: Meropenem 500 MG in Sodium Chloride 0.9% 100 ML IVPB SCH (01:00)
[2017-03-22] MEDS: Meropenem 500 MG in Sodium Chloride 0.9% 100 ML IVPB SCH ×3 (04:06→20:20)
[2017-03-22] MEDS: Levothyroxine 100 MCG TAB PO SCH (07:19)
[2017-03-22] MEDS: Insulin Lispro (humaLOG) 100 Units/ml Inj SC SCH ×4 (07:20→22:15)
--- NOTE | 2017-03-22 12:13 | CP.PCM.PN ---
Subjective - Date & Time of Evaluation Date of Evaluation: 03/22/17 Time of Evaluation: 12:11 - Subjective Subjective: 81 year old male seen at bedside for infected left foot ulceration with underlying OM of fifth metatarsal. Patient states that he is feeling well today. He is AAO x 3 and NAD, resting comfortably in bed. Nursing changed his dressing this morning. Denies any n/v/f/c/sob/cp. Objective - Vital Signs/Intake and Output Vital Signs (last 24 hours): Temp Pulse Resp BP Pulse Ox 97.5 F L 60 20 185/83 H 95 03/22/17 07:31 03/22/17 09:16 03/22/17 07:31 03/22/17 09:16 03/22/17 07:31 - Medications Medications: Current Medications Acetaminophen (Tylenol 325mg Tab) 650 mg PO Q6 PRN PRN Reason: Fever >100.4 F Acetaminophen (Tylenol 325mg Tab) 650 mg PO Q6 PRN PRN Reason: Pain, Mild (1-3) Last Admin: 03/20/17 20:39 Dose: 650 mg Aspirin (Ecotrin) 81 mg PO DAILY [facility] Last Admin: 03/22/17 09:15 Dose: 81 mg Atorvastatin Calcium (Lipitor) 20 mg PO HS [facility] Last Admin: 03/21/17 22:14 Dose: 20 mg Ergocalciferol (Drisdol 50,000 Intl Units Cap) 1 cap PO FR [facility] Last Admin: 03/20/17 21:29 Dose: 1 cap Heparin Sodium (Porcine) (Heparin) 5,000 units SC Q8 [facility] PRN Reason: Protocol Last Admin: 03/22/17 09:15 Dose: 5,000 units Vancomycin HCl 1 gm/ Sodium (Chloride) 250 mls @ 166.667 mls/hr IVPB DAILY@ 2200 [facility] PRN Reason: Protocol Last Admin: 03/21/17 22:14 Dose: 166.667 mls/hr Meropenem 500 mg/ Sodium (Chloride) 100 mls @ 100 mls/hr IVPB Q8@0400,1200, 2000 [facility] PRN Reason: Protocol Last Admin: 03/22/17 04:06 Dose: 100 mls/hr Insulin Human Lispro (Humalog) 0 units SC ACHS [facility] PRN Reason: Protocol Last Admin: 03/22/17 07:20 Dose: Not Given Levothyroxine Sodium (Synthroid) 100 mcg PO DAILY@0630 [facility] Last Admin: 03/22/17 07:19 Dose: 100 mcg Losartan Potassium (Cozaar) 100 mg PO DAILY [facility] Last Admin: 03/22/17 09:15 Dose: 100 mg Metoprolol Tartrate (Lopressor) 12.5 mg PO Q12@1000,2200 [facility] Last Admin: 03/22/17 09:16 Dose: 12.5 mg Mupirocin (Bactroban Ointment) 1 applic TOP DAILY [facility] Last Admin: 03/22/17 09:14 Dose: 1 applic Ticagrelor (Brilinta) 90 mg PO BID [facility] Last Admin: 03/22/17 09:14 Dose: 90 mg Tramadol HCl (Ultram) 50 mg PO Q6 PRN PRN Reason: Pain, severe (8-10) Last Admin: 03/21/17 20:47 Dose: 50 mg - Labs Labs: 03/20/17 10:30 03/20/17 10:30 APTT 28.8 Seconds (25.6-37.1) 03/19/17 05:40 - Constitutional Appears: Non-toxic, No Acute Distress - Extremities Exam Additional comments: dressing c/d/i to LLE offloading boot to LLE - Neurological Exam Neurological Exam: Alert, Awake, Oriented x3 - Psychiatric Exam Psychiatric exam: Normal Affect, Normal Mood Assessment and Plan - Assessment and Plan (Free Text) Assessment: 81 year old male with infected foot ulcerations of left foot with underlying OM of fifth metatarsal Plan: Patient seen and evaluated at bedside Discussed with attending Dr. Cuellar Charts, labs and vitals reviewed 03/18- Xray of left foot reviewed: Possible OM seen in fifth metatarsal, no signs of soft tissue emphysema noted 03/18- Wound cx taken left foot: ESBL Continue IV abx per ID patient to have offloading boots at all times Patient to be WB as tolerated to left side Patient to have bone biopsy and possible debridement in [place] this week Podiatry will continue to follow while patient in house
--- NOTE | 2017-03-22 12:59 | CP.PCM.PN ---
Subjective - Date & Time of Evaluation Date of Evaluation: 03/22/17 Time of Evaluation: 10:00 - Subjective Subjective: HAS ESBL + WOUND CULTURE HAD SAME ORGANISM IN BLOOD 2014 AWAITING VASCULAR EVAL FOR OR/DEBRIDEMENT CONSIDER ECHO IF NOT DONE CONT IV RX MIN 6 WEEKS Objective - Vital Signs/Intake and Output Vital Signs (last 24 hours): Temp Pulse Resp BP Pulse Ox 97.5 F L 60 20 185/83 H 95 03/22/17 07:31 03/22/17 09:16 03/22/17 07:31 03/22/17 09:16 03/22/17 07:31 - Medications Medications: Current Medications Acetaminophen (Tylenol 325mg Tab) 650 mg PO Q6 PRN PRN Reason: Fever >100.4 F Acetaminophen (Tylenol 325mg Tab) 650 mg PO Q6 PRN PRN Reason: Pain, Mild (1-3) Last Admin: 03/20/17 20:39 Dose: 650 mg Aspirin (Ecotrin) 81 mg PO DAILY [facility] Last Admin: 03/22/17 09:15 Dose: 81 mg Atorvastatin Calcium (Lipitor) 20 mg PO HS [facility] Last Admin: 03/21/17 22:14 Dose: 20 mg Ergocalciferol (Drisdol 50,000 Intl Units Cap) 1 cap PO FR [facility] Last Admin: 03/20/17 21:29 Dose: 1 cap Heparin Sodium (Porcine) (Heparin) 5,000 units SC Q8 [facility] PRN Reason: Protocol Last Admin: 03/22/17 09:15 Dose: 5,000 units Vancomycin HCl 1 gm/ Sodium (Chloride) 250 mls @ 166.667 mls/hr IVPB DAILY@ 2200 [facility] PRN Reason: Protocol Last Admin: 03/21/17 22:14 Dose: 166.667 mls/hr Meropenem 500 mg/ Sodium (Chloride) 100 mls @ 100 mls/hr IVPB Q8@0400,1200, 2000 [facility] PRN Reason: Protocol Last Admin: 03/22/17 12:33 Dose: 100 mls/hr Insulin Human Lispro (Humalog) 0 units SC ACHS [facility] PRN Reason: Protocol Last Admin: 03/22/17 12:26 Dose: 3 unit Levothyroxine Sodium (Synthroid) 100 mcg PO DAILY@0630 [facility] Last Admin: 03/22/17 07:19 Dose: 100 mcg Losartan Potassium (Cozaar) 100 mg PO DAILY [facility] Last Admin: 03/22/17 09:15 Dose: 100 mg Metoprolol Tartrate (Lopressor) 12.5 mg PO Q12@1000,2200 [facility] Last Admin: 03/22/17 09:16 Dose: 12.5 mg Mupirocin (Bactroban Ointment) 1 applic TOP DAILY [facility] Last Admin: 03/22/17 09:14 Dose: 1 applic Ticagrelor (Brilinta) 90 mg PO BID [facility] Last Admin: 03/22/17 09:14 Dose: 90 mg Tramadol HCl (Ultram) 50 mg PO Q6 PRN PRN Reason: Pain, severe (8-10) Last Admin: 03/21/17 20:47 Dose: 50 mg - Labs Labs: 03/20/17 10:30 03/20/17 10:30 APTT 28.8 Seconds (25.6-37.1) 03/19/17 05:40 - Constitutional Appears: Non-toxic, Chronically Ill - Head Exam Head Exam: NORMOCEPHALIC - Eye Exam Eye Exam: PERRL - ENT Exam ENT Exam: Mucous Membranes Dry - Neck Exam Neck Exam: absent: Lymphadenopathy - Respiratory Exam Respiratory Exam: Decreased Breath Sounds - Cardiovascular Exam Cardiovascular Exam: REGULAR RHYTHM - GI/Abdominal Exam GI & Abdominal Exam: Distended, Soft - Rectal Exam Rectal Exam: Deferred - Exam Exam: NORMAL INSPECTION - Extremities Exam Extremities Exam: absent: Pedal Edema - Back Exam Back Exam: absent: CVA tenderness (L), CVA tenderness (R) - Neurological Exam Neurological Exam: Alert, Awake, Oriented x3 - Psychiatric Exam Psychiatric exam: Depressed - Skin Skin Exam: Dry Additional comments: LE focused exam: Vasc: DP/PT pulses nonpalpable b/l. Skin temperature warm to cool from proximal to distal. CFT > 3 seconds. Edema noted to left foot at distal, lateral TMA site , improving Neuro: Epicritic and protective sensation grossly diminished Derm: Open wound measuring approximately 2 cm x 3 cm x 0.3 cm noted to lateral left foot. Fibrous base noted with serous drainage, decreased from last night. Mild malodor present. Erythematous periwound area noted. No undermining, tunneling, tracking or probe to bone detected. Second wound at coaptation line of L foot TMA noted distally. Wound appears to be healing. Erythematous periwound area no longer noted. No undermining, tunneling, tracking or probe to bone detected. MSK: POP noted to both wounds of left foot. Hx of TMA noted L foot Assessment and Plan (1) Cellulitis Status: Acute (2) Diabetic foot ulcer Status: Acute - Assessment and Plan (Free Text) Assessment: HAS ESBL + WOUND CULTURE HAD SAME ORGANISM IN BLOOD 2013 AWAITING VASCULAR EVAL FOR OR/DEBRIDEMENT CONSIDER ECHO IF NOT DONE CONT IV RX MIN 6 WEEKS
[2017-03-22] MEDS ORDERED: Sodium Chloride 0.45% 500ml 1,000 ML IV SCH (19:00)
--- NOTE | 2017-03-23 00:09 | CP.PCM.PN ---
Subjective - Date & Time of Evaluation Date of Evaluation: 03/22/17 Time of Evaluation: 14:45 Objective - Vital Signs/Intake and Output Vital Signs (last 24 hours): Temp Pulse Resp BP Pulse Ox 98.1 F 69 19 156/58 H 95 03/22/17 15:24 03/22/17 23:21 03/22/17 15:24 03/22/17 23:21 03/22/17 15:24 - Medications Medications: Current Medications Acetaminophen (Tylenol 325mg Tab) 650 mg PO Q6 PRN PRN Reason: Fever >100.4 F Acetaminophen (Tylenol 325mg Tab) 650 mg PO Q6 PRN PRN Reason: Pain, Mild (1-3) Last Admin: 03/20/17 20:39 Dose: 650 mg Amlodipine Besylate (Norvasc) 5 mg PO DAILY [facility] Last Admin: 03/22/17 19:12 Dose: 5 mg Aspirin (Ecotrin) 81 mg PO DAILY [facility] Last Admin: 03/22/17 09:15 Dose: 81 mg Atorvastatin Calcium (Lipitor) 20 mg PO HS [facility] Last Admin: 03/22/17 23:16 Dose: 20 mg Ergocalciferol (Drisdol 50,000 Intl Units Cap) 1 cap PO FR [facility] Last Admin: 03/20/17 21:29 Dose: 1 cap Heparin Sodium (Porcine) (Heparin) 5,000 units SC Q8 [facility] PRN Reason: Protocol Last Admin: 03/22/17 16:12 Dose: 5,000 units Vancomycin HCl 1 gm/ Sodium (Chloride) 250 mls @ 166.667 mls/hr IVPB DAILY@ 2200 [facility] PRN Reason: Protocol Last Admin: 03/22/17 23:15 Dose: 166.667 mls/hr Meropenem 500 mg/ Sodium (Chloride) 100 mls @ 100 mls/hr IVPB Q8@0400,1200, 2000 [facility] PRN Reason: Protocol Last Admin: 03/22/17 20:20 Dose: 100 mls/hr Sodium Chloride (Sodium Chloride 0.45%) 1,000 mls @ 75 mls/hr IV .[id number] [facility] Stop: 03/23/17 19:01 Last Admin: 03/22/17 19:15 Dose: 75 mls/hr Insulin Human Lispro (Humalog) 0 units SC ACHS [facility] PRN Reason: Protocol Last Admin: 03/22/17 22:15 Dose: Not Given Levothyroxine Sodium (Synthroid) 100 mcg PO DAILY@0630 [facility] Last Admin: 03/22/17 07:19 Dose: 100 mcg Losartan Potassium (Cozaar) 100 mg PO DAILY [facility] Last Admin: 03/22/17 09:15 Dose: 100 mg Metoprolol Tartrate (Lopressor) 12.5 mg PO Q12@1000,2200 [facility] Last Admin: 03/22/17 23:21 Dose: 12.5 mg Mupirocin (Bactroban Ointment) 1 applic TOP DAILY [facility] Last Admin: 03/22/17 09:14 Dose: 1 applic Ticagrelor (Brilinta) 90 mg PO BID [facility] Last Admin: 03/22/17 16:12 Dose: 90 mg Tramadol HCl (Ultram) 50 mg PO Q6 PRN PRN Reason: Pain, severe (8-10) Last Admin: 03/22/17 16:11 Dose: 50 mg - Labs Labs: 03/20/17 10:30 03/20/17 10:30 APTT 28.8 Seconds (25.6-37.1) 03/19/17 05:40
[2017-03-23] MEDS: Meropenem 500 MG in Sodium Chloride 0.9% 100 ML IVPB SCH ×3 (04:14→23:28)
[2017-03-23 06:33] LABS: HEMATOCRIT 31.1 % (35.0-51.0); MEAN CELL VOLUME 73.4 fl (80.0-94.0); MEAN CORPUSCULAR HGB CONC 31.4 g/dL (33.0-37.0); RED CELL DISTRIBUTION WIDTH 16.9 % (11.5-14.5)
[2017-03-23 06:53] LABS: ALB/GLOB RATIO 0.9 (1.0-2.1); ALKALINE PHOSPHATASE 102 U/L (38-126); ALT/SGPT 59 U/L (21-72); AST/SGOT 35 U/L (17-59); BILIRUBIN,TOTAL 0.2 mg/dl (0.2-1.3); BLOOD UREA NITROGEN 14 mg/dl (9-20); CALCIUM 8.5 mg/dL (8.4-10.2); CARBON DIOXIDE 22 mmol/L (22-30); CHLORIDE 114 mmol/L (98-107); GFR AFRICAN-AMERICAN > 60; GLUCOSE,RANDOM 112 mg/dL (75-110); POTASSIUM 4.1 MMOL/L (3.6-5.0); SODIUM 143 mmol/l (132-148); TOTAL PROTEIN 6.9 G/DL (6.3-8.2)
[2017-03-23] MEDS: Insulin Lispro (humaLOG) 100 Units/ml Inj SC SCH ×4 (07:10→23:22)
[2017-03-23] MEDS: Levothyroxine 100 MCG TAB PO SCH (08:29)
--- NOTE | 2017-03-23 13:42 | CP.PCM.PN ---
Subjective - Date & Time of Evaluation Date of Evaluation: 03/23/17 Time of Evaluation: 07:00 - Subjective Subjective: Possible OM seen in fifth metatarsal, Wound cx taken left foot: ESBL Objective - Vital Signs/Intake and Output Vital Signs (last 24 hours): Temp Pulse Resp BP Pulse Ox 97.6 F 83 18 164/55 H 100 03/23/17 08:32 03/23/17 09:19 03/23/17 08:32 03/23/17 09:19 03/23/17 08:32 - Medications Medications: Current Medications Acetaminophen (Tylenol 325mg Tab) 650 mg PO Q6 PRN PRN Reason: Fever >100.4 F Acetaminophen (Tylenol 325mg Tab) 650 mg PO Q6 PRN PRN Reason: Pain, Mild (1-3) Last Admin: 03/20/17 20:39 Dose: 650 mg Amlodipine Besylate (Norvasc) 5 mg PO DAILY [facility] Last Admin: 03/23/17 09:19 Dose: 5 mg Aspirin (Ecotrin) 81 mg PO DAILY [facility] Last Admin: 03/23/17 09:18 Dose: 81 mg Atorvastatin Calcium (Lipitor) 20 mg PO HS [facility] Last Admin: 03/22/17 23:16 Dose: 20 mg Ergocalciferol (Drisdol 50,000 Intl Units Cap) 1 cap PO FR [facility] Last Admin: 03/20/17 21:29 Dose: 1 cap Heparin Sodium (Porcine) (Heparin) 5,000 units SC Q8 [facility] PRN Reason: Protocol Last Admin: 03/23/17 09:18 Dose: 5,000 units Vancomycin HCl 1 gm/ Sodium (Chloride) 250 mls @ 166.667 mls/hr IVPB DAILY@ 2200 [facility] PRN Reason: Protocol Last Admin: 03/22/17 23:15 Dose: 166.667 mls/hr Meropenem 500 mg/ Sodium (Chloride) 100 mls @ 100 mls/hr IVPB Q8@0400,1200, 2000 [facility] PRN Reason: Protocol Last Admin: 03/23/17 11:58 Dose: 100 mls/hr Sodium Chloride (Sodium Chloride 0.45%) 1,000 mls @ 75 mls/hr IV .[id number] [facility] Stop: 03/23/17 19:01 Last Admin: 03/22/17 19:15 Dose: 75 mls/hr Insulin Human Lispro (Humalog) 0 units SC ACHS [facility] PRN Reason: Protocol Last Admin: 03/23/17 11:58 Dose: Not Given Levothyroxine Sodium (Synthroid) 100 mcg PO DAILY@0630 [facility] Last Admin: 03/23/17 08:29 Dose: 100 mcg Losartan Potassium (Cozaar) 100 mg PO DAILY [facility] Last Admin: 03/23/17 09:17 Dose: 100 mg Metoprolol Tartrate (Lopressor) 12.5 mg PO Q12@1000,2200 [facility] Last Admin: 03/23/17 09:18 Dose: 12.5 mg Mupirocin (Bactroban Ointment) 1 applic TOP DAILY [facility] Last Admin: 03/22/17 09:14 Dose: 1 applic Ticagrelor (Brilinta) 90 mg PO BID [facility] Last Admin: 03/23/17 09:17 Dose: 90 mg Tramadol HCl (Ultram) 50 mg PO Q6 PRN PRN Reason: Pain, severe (8-10) Last Admin: 03/22/17 16:11 Dose: 50 mg - Labs Labs: 03/23/17 05:55 03/23/17 05:55 APTT 33.6 Seconds (25.6-37.1) 03/23/17 05:55 - Constitutional Appears: Non-toxic, Chronically Ill - Head Exam Head Exam: NORMOCEPHALIC - Eye Exam Eye Exam: PERRL - ENT Exam ENT Exam: Mucous Membranes Dry - Neck Exam Neck Exam: absent: Lymphadenopathy - Respiratory Exam Respiratory Exam: Decreased Breath Sounds - Cardiovascular Exam Cardiovascular Exam: REGULAR RHYTHM - GI/Abdominal Exam GI & Abdominal Exam: Distended, Soft Assessment and Plan (1) Cellulitis Status: Acute (2) Diabetic foot ulcer Status: Acute - Assessment and Plan (Free Text) Assessment: WILL NEED OR / DEBRIDEMENT Plan: CONT IV RX FOR MIN 6 WEEKS
[2017-03-23] MEDS ORDERED: Lidocaine 1% Inj (20ml) ONE (14:02)
--- NOTE | 2017-03-23 15:35 | PCM.SURG1 ---
Surgeon's Initial Post Op Note - Surgeon's Notes Surgeon: Mani Carmona MD Laboratory Development Technician: None Type of Anesthesia: Local Pre-Operative Diagnosis: Infection Operative Findings: patent right basilic vein. catheter length 45 cm. catheter tip at cavoatrial junction Post-Operative Diagnosis: same Operation Performed: RUE PICC Insertion Specimen/Specimens Removed: none Estimated Blood Loss: EBL {In ML}: 0 Date of Surgery/Procedure: 03/23/17 Time of Surgery/Procedure: 14:30
--- NOTE | 2017-03-23 17:15 | CP.PCM.PN ---
Subjective - Date & Time of Evaluation Date of Evaluation: 03/23/17 Time of Evaluation: 17:12 - Subjective Subjective: 81 year old male seen at bedside for lateral left foot wound with underlying osteomyelitis of his left fifth metatarsal. Patient denies any acute overnight events. Patient denies N/V/F/C/CP/SOB. Says that he still has pain in the area but that it is manageable. Patient is refusing a dressing change Objective - Vital Signs/Intake and Output Vital Signs (last 24 hours): Temp Pulse Resp BP Pulse Ox 99.1 F 80 18 158/60 H 100 03/23/17 14:08 03/23/17 14:48 03/23/17 14:48 03/23/17 14:48 03/23/17 08:32 - Medications Medications: Current Medications Acetaminophen (Tylenol 325mg Tab) 650 mg PO Q6 PRN PRN Reason: Fever >100.4 F Acetaminophen (Tylenol 325mg Tab) 650 mg PO Q6 PRN PRN Reason: Pain, Mild (1-3) Last Admin: 03/20/17 20:39 Dose: 650 mg Amlodipine Besylate (Norvasc) 5 mg PO DAILY [facility] Last Admin: 03/23/17 09:19 Dose: 5 mg Aspirin (Ecotrin) 81 mg PO DAILY [facility] Last Admin: 03/23/17 09:18 Dose: 81 mg Atorvastatin Calcium (Lipitor) 20 mg PO HS [facility] Last Admin: 03/22/17 23:16 Dose: 20 mg Ergocalciferol (Drisdol 50,000 Intl Units Cap) 1 cap PO FR [facility] Last Admin: 03/20/17 21:29 Dose: 1 cap Heparin Sodium (Porcine) (Heparin) 5,000 units SC Q8 [facility] PRN Reason: Protocol Last Admin: 03/23/17 09:18 Dose: 5,000 units Vancomycin HCl 1 gm/ Sodium (Chloride) 250 mls @ 166.667 mls/hr IVPB DAILY@ 2200 [facility] PRN Reason: Protocol Last Admin: 03/22/17 23:15 Dose: 166.667 mls/hr Meropenem 500 mg/ Sodium (Chloride) 100 mls @ 100 mls/hr IVPB Q8@0400,1200, 2000 [facility] PRN Reason: Protocol Last Admin: 03/23/17 11:58 Dose: 100 mls/hr Sodium Chloride (Sodium Chloride 0.45%) 1,000 mls @ 75 mls/hr IV .[id number] [facility] Stop: 03/23/17 19:01 Last Admin: 03/22/17 19:15 Dose: 75 mls/hr Insulin Human Lispro (Humalog) 0 units SC ACHS [facility] PRN Reason: Protocol Last Admin: 03/23/17 16:33 Dose: Not Given Levothyroxine Sodium (Synthroid) 100 mcg PO DAILY@0630 [facility] Last Admin: 03/23/17 08:29 Dose: 100 mcg Losartan Potassium (Cozaar) 100 mg PO DAILY [facility] Last Admin: 03/23/17 09:17 Dose: 100 mg Metoprolol Tartrate (Lopressor) 12.5 mg PO Q12@1000,2200 [facility] Last Admin: 03/23/17 09:18 Dose: 12.5 mg Mupirocin (Bactroban Ointment) 1 applic TOP DAILY [facility] Last Admin: 03/22/17 09:14 Dose: 1 applic Ticagrelor (Brilinta) 90 mg PO BID [facility] Last Admin: 03/23/17 09:17 Dose: 90 mg Tramadol HCl (Ultram) 50 mg PO Q6 PRN PRN Reason: Pain, severe (8-10) Last Admin: 03/22/17 16:11 Dose: 50 mg - Labs Labs: 03/23/17 05:55 03/23/17 05:55 APTT 33.6 Seconds (25.6-37.1) 03/23/17 05:55 - Constitutional Appears: Well, Non-toxic, No Acute Distress - Extremities Exam Additional comments: Patient refused his dressing change multiple times - Neurological Exam Neurological Exam: Alert, Awake, Oriented x3 - Psychiatric Exam Psychiatric exam: Normal Affect, Normal Mood Assessment and Plan - Assessment and Plan (Free Text) Assessment: 81 year old male seen at bedside for lateral left foot ulceration with underlying 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 Cuellar Patient's dressings not changed today because patient refused Patient to be taken to OR on 03/25 for incision and drainage of left foot ulceration with removal of underlying bone Patient will need to be medically optimized before that time Continue IV abx Podiatry will continue to follow while patient in house
--- NOTE | 2017-03-23 23:13 | CP.PCM.PN ---
Subjective - Date & Time of Evaluation Date of Evaluation: 03/23/17 Time of Evaluation: 13:10 Objective - Vital Signs/Intake and Output Vital Signs (last 24 hours): Temp Pulse Resp BP Pulse Ox 98.3 F 82 20 180/92 H 100 03/23/17 17:21 03/23/17 18:19 03/23/17 17:21 03/23/17 18:19 03/23/17 17:21 - Medications Medications: Current Medications Acetaminophen (Tylenol 325mg Tab) 650 mg PO Q6 PRN PRN Reason: Fever >100.4 F Acetaminophen (Tylenol 325mg Tab) 650 mg PO Q6 PRN PRN Reason: Pain, Mild (1-3) Last Admin: 03/20/17 20:39 Dose: 650 mg Amlodipine Besylate (Norvasc) 10 mg PO DAILY [facility] Aspirin (Ecotrin) 81 mg PO DAILY [facility] Last Admin: 03/23/17 09:18 Dose: 81 mg Atorvastatin Calcium (Lipitor) 20 mg PO HS [facility] Last Admin: 03/22/17 23:16 Dose: 20 mg Ergocalciferol (Drisdol 50,000 Intl Units Cap) 1 cap PO FR [facility] Last Admin: 03/20/17 21:29 Dose: 1 cap Heparin Sodium (Porcine) (Heparin) 5,000 units SC Q8 [facility] PRN Reason: Protocol Last Admin: 03/23/17 17:12 Dose: 5,000 units Vancomycin HCl 1 gm/ Sodium (Chloride) 250 mls @ 166.667 mls/hr IVPB DAILY@ 2200 [facility] PRN Reason: Protocol Last Admin: 03/22/17 23:15 Dose: 166.667 mls/hr Meropenem 500 mg/ Sodium (Chloride) 100 mls @ 100 mls/hr IVPB Q8@0400,1200, 2000 [facility] PRN Reason: Protocol Last Admin: 03/23/17 11:58 Dose: 100 mls/hr Insulin Human Lispro (Humalog) 0 units SC ACHS [facility] PRN Reason: Protocol Last Admin: 03/23/17 16:33 Dose: Not Given Levothyroxine Sodium (Synthroid) 100 mcg PO DAILY@0630 [facility] Last Admin: 03/23/17 08:29 Dose: 100 mcg Losartan Potassium (Cozaar) 100 mg PO DAILY [facility] Last Admin: 03/23/17 09:17 Dose: 100 mg Metoprolol Tartrate (Lopressor) 12.5 mg PO Q12@1000,2200 [facility] Last Admin: 03/23/17 09:18 Dose: 12.5 mg Mupirocin (Bactroban Ointment) 1 applic TOP DAILY [facility] Last Admin: 03/23/17 17:13 Dose: 1 applic Ticagrelor (Brilinta) 90 mg PO BID [facility] Last Admin: 03/23/17 17:12 Dose: 90 mg - Labs Labs: 03/23/17 05:55 03/23/17 05:55 APTT 33.6 Seconds (25.6-37.1) 03/23/17 05:55
[2017-03-24] MEDS: Insulin Lispro (humaLOG) 100 Units/ml Inj SC SCH ×4 (06:38→22:17)
--- NOTE | 2017-03-24 07:38 | VASCULAR ---
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 COMPARISON: None. PROCEDURE: 1. Focused ultrasound of the right upper extremity vasculature. 2. Ultrasound-guided access. 3. Insertion of peripherally inserted central venous catheter. 4. Fluoroscopic localization of catheter tip. PRE-PROCEDURE FINDINGS: 1. Patent right basilic vein. POST-PROCEDURE FINDINGS: 1. Placement of 4 Polish single-lumen PICC. 2. Catheter length: 45 cm. 3. Catheter tip at cavoatrial junction. INTERVENTIONAL RADIOLOGIST: Mani Carmona M.D. (the attending was present for the entire procedure.) ANESTHESIA: None. MEDICATION: Lidocaine 1% for local subcutaneous analgesia. COMPLICATIONS: None. PROCEDURE DESCRIPTION AND FINDINGS: The risks, benefits, alternatives and possible complications of the procedure were fully discussed; all questions were answered and informed consent was obtained. The patient was brought into the interventional suite and a pre-procedure 'time-out' was performed. The patient was brought into the interventional suite and a pre-procedure 'time-out' was performed. The patient was placed on the fluoroscopy table in the supine position. The right upper extremity was prepped and draped in the usual sterile fashion. Maximum sterile barrier precautions were maintained throughout the entire procedure. Preliminary ultrasound images of the right upper extremity vasculature demonstrate patency of the right basilic vein. Following subcutaneous infiltration of 1% lidocaine for local analgesia, under ultrasound guidance, a 21-gauge needle was advanced into the right basilic vein with real-time visualization of needle entry. The ultrasound images were permanently recorded and submitted to the PACS. A 0.018 guidewire was advanced centrally to the cavoatrial junction. A 4.5 Polish peel-away sheath was advanced over the guidewire. After obtaining length measurement, a 4 Polish single-lumen PICC was placed with the tip of the catheter at the cavoatrial junction. The total length of the catheter is 45 cm. The hub of the PICC was secured to the skin using a sterile adhesive bandage. The patient tolerated the procedure well without immediate post-procedure complications and was transferred back to the floor in stable condition. IMPRESSION: SUCCESSFUL INSERTION OF RIGHT UPPER EXTREMITY PICC. PICC OK TO USE.
--- NOTE | 2017-03-24 09:00 | CP.PCM.PN ---
Subjective - Date & Time of Evaluation Date of Evaluation: 03/24/17 Time of Evaluation: 08:57 - Subjective Subjective: 81 year old male seen at bedside for lateral left foot wound with underlying osteomyelitis of his left fifth metatarsal. Patient denies any acute overnight events. Patient denies N/V/F/C/CP/SOB. Says that his pain to left foot has diminished. Patient is AAO x 3 and NAD resting comfortably in bed Objective - Vital Signs/Intake and Output Vital Signs (last 24 hours): Temp Pulse Resp BP Pulse Ox 98.7 F 73 20 150/63 99 03/24/17 08:02 03/24/17 08:02 03/24/17 08:02 03/24/17 08:02 03/24/17 08:02 - Medications Medications: Current Medications Acetaminophen (Tylenol 325mg Tab) 650 mg PO Q6 PRN PRN Reason: Fever >100.4 F Acetaminophen (Tylenol 325mg Tab) 650 mg PO Q6 PRN PRN Reason: Pain, Mild (1-3) Last Admin: 03/20/17 20:39 Dose: 650 mg Amlodipine Besylate (Norvasc) 10 mg PO DAILY [facility] Aspirin (Ecotrin) 81 mg PO DAILY [facility] Last Admin: 03/23/17 09:18 Dose: 81 mg Atorvastatin Calcium (Lipitor) 20 mg PO HS [facility] Last Admin: 03/23/17 23:29 Dose: 20 mg Ergocalciferol (Drisdol 50,000 Intl Units Cap) 1 cap PO FR [facility] Last Admin: 03/20/17 21:29 Dose: 1 cap Heparin Sodium (Porcine) (Heparin) 5,000 units SC Q8 [facility] PRN Reason: Protocol Last Admin: 03/24/17 01:04 Dose: 5,000 units Meropenem 500 mg/ Sodium (Chloride) 100 mls @ 100 mls/hr IVPB Q8@0000,0800, 1600 [facility] PRN Reason: Protocol Vancomycin HCl 1 gm/ Sodium (Chloride) 250 mls @ 166.667 mls/hr IVPB DAILY@ 0100 [facility] PRN Reason: Protocol Insulin Human Lispro (Humalog) 0 units SC ACHS [facility] PRN Reason: Protocol Last Admin: 03/24/17 06:38 Dose: Not Given Levothyroxine Sodium (Synthroid) 100 mcg PO DAILY@0630 [facility] Last Admin: 03/23/17 08:29 Dose: 100 mcg Losartan Potassium (Cozaar) 100 mg PO DAILY [facility] Last Admin: 03/23/17 09:17 Dose: 100 mg Metoprolol Tartrate (Lopressor) 12.5 mg PO Q12@1000,2200 [facility] Last Admin: 03/23/17 23:29 Dose: 12.5 mg Mupirocin (Bactroban Ointment) 1 applic TOP DAILY [facility] Last Admin: 03/23/17 17:13 Dose: 1 applic Ticagrelor (Brilinta) 90 mg PO BID [facility] Last Admin: 03/23/17 17:12 Dose: 90 mg - Labs Labs: 03/23/17 05:55 03/23/17 05:55 APTT 33.6 Seconds (25.6-37.1) 03/23/17 05:55 - Constitutional Appears: Well, Non-toxic, No Acute Distress - Extremities Exam Additional comments: LE focused exam: Vasc: DP/PT pulses nonpalpable b/l. Skin temperature warm to cool from proximal to distal. CFT > 3 seconds. Edema noted to left foot at distal, lateral TMA site , improving Neuro: Epicritic and protective sensation grossly diminished Derm: Open wound measuring approximately 2 cm x 3 cm x 0.3 cm noted to lateral left foot. Fibrous base noted with serous drainage. Mild malodor still present but improving. Erythematous periwound area no longer noted. No undermining, tunneling, tracking or probe to bone detected. Second wound at coaptation line of L foot TMA noted distally. Wound appears to be healing. No undermining, tunneling, tracking or probe to bone detected. MSK: POP noted to wound on lateral side of left foot. Hx of TMA noted L foot - Neurological Exam Neurological Exam: Alert, Awake, Oriented x3 - Psychiatric Exam Psychiatric exam: Normal Affect, Normal Mood Assessment and Plan - Assessment and Plan (Free Text) Assessment: 81 year old male seen at bedside for infected lateral left foot ulceration with underlying osteomyelitis Plan: Patient seen and evaluated at bedside Charts, labs and vitals reviewed Plan discussed with attending Dr. Cuellar Continue IV abx Wound dressed with mupirocin, xeroform, DSD Patient to be WB as tolerated to left side Patient to be taken to OR tomorrow for I and D of left foot ulcer with resection of underlying osteomyeltic bone Medical clearance needed at this time Podiatry will continue to follow while patient in house
[2017-03-24] MEDS: Levothyroxine 100 MCG TAB PO SCH (09:05)
[2017-03-24] MEDS: Meropenem 500 MG in Sodium Chloride 0.9% 100 ML IVPB SCH ×2 (09:05→16:08)
--- NOTE | 2017-03-24 20:00 | CP.PCM.PN ---
Subjective - Date & Time of Evaluation Date of Evaluation: 03/24/17 Time of Evaluation: 19:35 - Subjective Subjective: patient has no chest pain. require foot debridement. Objective - Vital Signs/Intake and Output Vital Signs (last 24 hours): Temp Pulse Resp BP Pulse Ox 97.5 F L 75 20 161/66 H 96 03/24/17 16:02 03/24/17 16:02 03/24/17 16:02 03/24/17 16:02 03/24/17 16:02 - Medications Medications: Current Medications Acetaminophen (Tylenol 325mg Tab) 650 mg PO Q6 PRN PRN Reason: Fever >100.4 F Acetaminophen (Tylenol 325mg Tab) 650 mg PO Q6 PRN PRN Reason: Pain, Mild (1-3) Last Admin: 03/24/17 11:04 Dose: 650 mg Amlodipine Besylate (Norvasc) 10 mg PO DAILY [facility] Last Admin: 03/24/17 09:04 Dose: 10 mg Aspirin (Ecotrin) 81 mg PO DAILY [facility] Last Admin: 03/24/17 09:04 Dose: 81 mg Atorvastatin Calcium (Lipitor) 20 mg PO HS [facility] Last Admin: 03/23/17 23:29 Dose: 20 mg Ergocalciferol (Drisdol 50,000 Intl Units Cap) 1 cap PO FR [facility] Last Admin: 03/20/17 21:29 Dose: 1 cap Heparin Sodium (Porcine) (Heparin) 5,000 units SC Q8 [facility] PRN Reason: Protocol Last Admin: 03/24/17 16:18 Dose: 5,000 units Meropenem 500 mg/ Sodium (Chloride) 100 mls @ 100 mls/hr IVPB Q8@0000,0800, 1600 [facility] PRN Reason: Protocol Last Admin: 03/24/17 16:08 Dose: 100 mls/hr Vancomycin HCl 1 gm/ Sodium (Chloride) 250 mls @ 166.667 mls/hr IVPB DAILY@ 0100 [facility] PRN Reason: Protocol Insulin Human Lispro (Humalog) 0 units SC ACHS [facility] PRN Reason: Protocol Last Admin: 03/24/17 16:19 Dose: Not Given Levothyroxine Sodium (Synthroid) 100 mcg PO DAILY@0630 [facility] Last Admin: 03/24/17 09:05 Dose: 100 mcg Losartan Potassium (Cozaar) 100 mg PO DAILY [facility] Last Admin: 03/24/17 09:04 Dose: 100 mg Metoprolol Tartrate (Lopressor) 12.5 mg PO Q12@1000,2200 [facility] Last Admin: 03/24/17 09:03 Dose: 12.5 mg Mupirocin (Bactroban Ointment) 1 applic TOP DAILY [facility] Last Admin: 03/24/17 09:02 Dose: 1 applic Ticagrelor (Brilinta) 90 mg PO BID [facility] Last Admin: 03/24/17 16:18 Dose: 90 mg - Labs Labs: 03/23/17 05:55 03/23/17 05:55 APTT 33.6 Seconds (25.6-37.1) 03/23/17 05:55 - Constitutional Appears: Non-toxic - Head Exam Head Exam: NORMAL INSPECTION - Eye Exam Eye Exam: Normal appearance - ENT Exam ENT Exam: Mucous Membranes Moist - Neck Exam Neck Exam: Full ROM - Respiratory Exam Respiratory Exam: Decreased Breath Sounds - Cardiovascular Exam Cardiovascular Exam: REGULAR RHYTHM - GI/Abdominal Exam GI & Abdominal Exam: Normal Bowel Sounds - Rectal Exam Rectal Exam: Deferred - Extremities Exam Extremities Exam: Pedal Edema - Back Exam Back Exam: NORMAL INSPECTION - Neurological Exam Neurological Exam: Alert - Psychiatric Exam Psychiatric exam: Normal Affect - Skin Skin Exam: Normal Color Assessment and Plan (1) Diabetic foot ulcer Assessment & Plan: patient has no current cardiovascular complaints. He has been stable after 2 vessel PCI. THere is no cardiovascular contraindication to the planned surgery. Status: Acute (2) CKD (chronic kidney disease) stage 3, GFR 30-59 ml/min Status: Acute (3) Coronary artery disease Status: Chronic (4) Hypertension Status: Chronic
[2017-03-25] MEDS: Meropenem 500 MG in Sodium Chloride 0.9% 100 ML IVPB SCH ×3 (01:30→16:28)
[2017-03-25] MEDS: Levothyroxine 100 MCG TAB PO SCH (06:27)
[2017-03-25] MEDS: Insulin Lispro (humaLOG) 100 Units/ml Inj SC SCH ×3 (06:30→16:31)
[2017-03-25] MEDS ORDERED: Bacitracin OINT 15GM TOP SCH (09:00)
--- NOTE | 2017-03-25 09:54 | CP.PCM.PN ---
Subjective - Date & Time of Evaluation Date of Evaluation: 03/25/17 Time of Evaluation: 09:52 - Subjective Subjective: 81 year old male seen at bedside for lateral left foot wound with underlying osteomyelitis of his left fifth metatarsal. Patient is very noncompliant during examination. He refuses to roll over so that we can examine his foot wound. He continually tells us to leave him alone and that he does not want his foot looked at. He admits to taking off his foot dressing. Per nursing, patient ripped out his PICC line. Objective - Vital Signs/Intake and Output Vital Signs (last 24 hours): Temp Pulse Resp BP Pulse Ox 98.2 F 76 20 160/63 H 99 03/25/17 07:36 03/25/17 09:10 03/25/17 07:36 03/25/17 09:10 03/25/17 07:36 - Medications Medications: Current Medications Acetaminophen (Tylenol 325mg Tab) 650 mg PO Q6 PRN PRN Reason: Fever >100.4 F Acetaminophen (Tylenol 325mg Tab) 650 mg PO Q6 PRN PRN Reason: Pain, Mild (1-3) Last Admin: 03/24/17 11:04 Dose: 650 mg Amlodipine Besylate (Norvasc) 10 mg PO DAILY [facility] Last Admin: 03/25/17 08:44 Dose: 10 mg Aspirin (Ecotrin) 81 mg PO DAILY [facility] Last Admin: 03/25/17 08:43 Dose: 81 mg Atorvastatin Calcium (Lipitor) 20 mg PO HS [facility] Last Admin: 03/24/17 22:16 Dose: 20 mg Bacitracin (Bacitracin Oint) 1 applic TOP DAILY [facility] Last Admin: 03/25/17 08:39 Dose: 1 applic Ergocalciferol (Drisdol 50,000 Intl Units Cap) 1 cap PO FR [facility] Last Admin: 03/20/17 21:29 Dose: 1 cap Heparin Sodium (Porcine) (Heparin) 5,000 units SC Q8 [facility] PRN Reason: Protocol Last Admin: 03/25/17 08:43 Dose: 5,000 units Meropenem 500 mg/ Sodium (Chloride) 100 mls @ 100 mls/hr IVPB Q8@0000,0800, 1600 [facility] PRN Reason: Protocol Last Admin: 03/25/17 01:30 Dose: 100 mls/hr Vancomycin HCl 1 gm/ Sodium (Chloride) 250 mls @ 166.667 mls/hr IVPB DAILY@ 0100 [facility] PRN Reason: Protocol Last Admin: 03/25/17 00:23 Dose: 166.667 mls/hr Insulin Human Lispro (Humalog) 0 units SC ACHS [facility] PRN Reason: Protocol Last Admin: 03/25/17 06:30 Dose: Not Given Levothyroxine Sodium (Synthroid) 100 mcg PO DAILY@0630 [facility] Last Admin: 03/25/17 06:27 Dose: 100 mcg Losartan Potassium (Cozaar) 100 mg PO DAILY [facility] Last Admin: 03/25/17 08:42 Dose: 100 mg Metoprolol Tartrate (Lopressor) 12.5 mg PO Q12@1000,2200 [facility] Last Admin: 03/25/17 09:10 Dose: 12.5 mg Mupirocin (Bactroban Ointment) 1 applic TOP DAILY [facility] Last Admin: 03/25/17 08:40 Dose: 1 applic Ticagrelor (Brilinta) 90 mg PO BID [facility] Last Admin: 03/25/17 08:40 Dose: 90 mg - Labs Labs: 03/23/17 05:55 03/23/17 05:55 APTT 33.6 Seconds (25.6-37.1) 03/23/17 05:55 - Constitutional Appears: Well, Non-toxic, No Acute Distress - Extremities Exam Additional comments: Patient refused an examination - Neurological Exam Neurological Exam: Alert, Awake, Oriented x3 - Psychiatric Exam Psychiatric exam: Normal Affect, Normal Mood Assessment and Plan - Assessment and Plan (Free Text) Assessment: 81 year old male seen at bedside for infected lateral left foot ulceration with underlying osteomyelitis Plan: Patient seen and evaluated at bedside Dr. Cuellar spoke with patient's son about taking him for surgery tomorrow Patient's son does not want Mr. Young to have surgery performed on him because he thinks it will hurt too much Dr. Cuellar explained to the son adamantly that due to Mr. Young's bone infection and skin infection an I and D with bone resection is the best treatment option at this time Dr. Cuellar explained to pts son that IV abx do not tend to work very efficaciously Pts son has until noon today to let Dr. Cuellar know whether or not he wants his father to have surgery Upon examination Mr. Young's foot dressing was not seen to be on his left foot and he refused repeatedly to allow for a new dressing change Will try to change his dressing again later and will keep nursing posted on whether or not the surgery is cancelled for tomorrow Podiatry will continue to follow while patient is in house
--- NOTE | 2017-03-25 11:56 | CARD ---
APPROVED REPORT EKG Measurement Heart [id number] <Conclusion> Normal sinus rhythm Possible Left atrial enlargement Abnormal QRS-T angle, consider primary T wave abnormality Abnormal ECG
--- NOTE | 2017-03-25 12:52 | CP.PCM.PN ---
Subjective - Date & Time of Evaluation Date of Evaluation: 03/25/17 Time of Evaluation: 09:00 - Subjective Subjective: refusing amputation/ and or debridement iv rx in progress poor prognosis Objective - Vital Signs/Intake and Output Vital Signs (last 24 hours): Temp Pulse Resp BP Pulse Ox 98.2 F 76 20 160/63 H 99 03/25/17 07:36 03/25/17 09:10 03/25/17 07:36 03/25/17 09:10 03/25/17 07:36 - Medications Medications: Current Medications Acetaminophen (Tylenol 325mg Tab) 650 mg PO Q6 PRN PRN Reason: Fever >100.4 F Acetaminophen (Tylenol 325mg Tab) 650 mg PO Q6 PRN PRN Reason: Pain, Mild (1-3) Last Admin: 03/24/17 11:04 Dose: 650 mg Amlodipine Besylate (Norvasc) 10 mg PO DAILY [facility] Last Admin: 03/25/17 08:44 Dose: 10 mg Aspirin (Ecotrin) 81 mg PO DAILY [facility] Last Admin: 03/25/17 08:43 Dose: 81 mg Atorvastatin Calcium (Lipitor) 20 mg PO HS [facility] Last Admin: 03/24/17 22:16 Dose: 20 mg Bacitracin (Bacitracin Oint) 1 applic TOP DAILY [facility] Last Admin: 03/25/17 08:39 Dose: 1 applic Ergocalciferol (Drisdol 50,000 Intl Units Cap) 1 cap PO FR [facility] Last Admin: 03/20/17 21:29 Dose: 1 cap Heparin Sodium (Porcine) (Heparin) 5,000 units SC Q8 [facility] PRN Reason: Protocol Last Admin: 03/25/17 08:43 Dose: 5,000 units Meropenem 500 mg/ Sodium (Chloride) 100 mls @ 100 mls/hr IVPB Q8@0000,0800, 1600 [facility] PRN Reason: Protocol Last Admin: 03/25/17 01:30 Dose: 100 mls/hr Vancomycin HCl 1 gm/ Sodium (Chloride) 250 mls @ 166.667 mls/hr IVPB DAILY@ 0100 [facility] PRN Reason: Protocol Last Admin: 03/25/17 00:23 Dose: 166.667 mls/hr Insulin Human Lispro (Humalog) 0 units SC ACHS [facility] PRN Reason: Protocol Last Admin: 03/25/17 06:30 Dose: Not Given Levothyroxine Sodium (Synthroid) 100 mcg PO DAILY@0630 [facility] Last Admin: 03/25/17 06:27 Dose: 100 mcg Losartan Potassium (Cozaar) 100 mg PO DAILY [facility] Last Admin: 03/25/17 08:42 Dose: 100 mg Metoprolol Tartrate (Lopressor) 12.5 mg PO Q12@1000,2200 [facility] Last Admin: 03/25/17 09:10 Dose: 12.5 mg Mupirocin (Bactroban Ointment) 1 applic TOP DAILY [facility] Last Admin: 03/25/17 08:40 Dose: 1 applic Ticagrelor (Brilinta) 90 mg PO BID [facility] Last Admin: 03/25/17 08:40 Dose: 90 mg - Labs Labs: 03/23/17 05:55 03/23/17 05:55 APTT 33.6 Seconds (25.6-37.1) 03/23/17 05:55 - Constitutional Appears: Non-toxic, Chronically Ill - Head Exam Head Exam: NORMOCEPHALIC - Eye Exam Eye Exam: PERRL - ENT Exam ENT Exam: Mucous Membranes Dry - Neck Exam Neck Exam: absent: Lymphadenopathy - Respiratory Exam Respiratory Exam: Decreased Breath Sounds - Cardiovascular Exam Cardiovascular Exam: REGULAR RHYTHM - GI/Abdominal Exam GI & Abdominal Exam: Distended, Soft - Rectal Exam Rectal Exam: Deferred - Exam Exam: NORMAL INSPECTION - Extremities Exam Extremities Exam: absent: Pedal Edema - Back Exam Back Exam: absent: CVA tenderness (L), CVA tenderness (R) - Neurological Exam Neurological Exam: Alert, Awake, Oriented x3 - Psychiatric Exam Psychiatric exam: Normal Mood - Skin Skin Exam: Dry Assessment and Plan (1) Cellulitis Status: Acute (2) Diabetic foot ulcer Status: Acute - Assessment and Plan (Free Text) Assessment: cont empiric rx for 6 weeks poor prognosis
[2017-03-25] MEDS ORDERED: Lidocaine 1% Inj (20ml) ONE (14:59)
[2017-03-25 16:18] VITALS: BP 152/62; PULSE 70; RESP 20; TEMP 97.4; O2SAT 99
--- NOTE | 2017-03-26 11:36 | CP.PCM.DIS ---
Provider - Provider Date of Admission: 03/18/17 18:14 Attending physician: Gissel Sneed MD Time Spent in preparation of Discharge (in minutes): 25 Hospital Course - Lab Results Lab Results: Micro Results 03/18/17 17:45 Blood-Venous Blood Culture - Final NO GROWTH AFTER 5 DAYS 03/18/17 17:45 Blood-Venous Gram Stain - Final TEST NOT PERFORMED 03/18/17 17:28 Blood-Venous Blood Culture - Final NO GROWTH AFTER 5 DAYS 03/18/17 17:28 Blood-Venous Gram Stain - Final TEST NOT PERFORMED 03/18/17 19:58 Foot - Left Gram Stain - Final 03/18/17 19:58 Foot - Left Wound Culture - Final Escherichia Coli Most Recent Lab Values WBC 7.0 K/uL (4.8-10.8) 03/23/17 05:55 RBC 4.23 Mil/uL (4.40-5.90) L 03/23/17 05:55 Hgb 9.7 g/dL (12.0-18.0) L 03/23/17 05:55 Hct 31.1 % (35.0-51.0) L 03/23/17 05:55 MCV 73.4 fl (80.0-94.0) L 03/23/17 05:55 MCH 23.0 pg (27.0-31.0) L 03/23/17 05:55 MCHC 31.4 g/dL (33.0-37.0) L 03/23/17 05:55 RDW 16.9 % (11.5-14.5) H 03/23/17 05:55 Plt Count 123 K/uL (130-400) L D 03/23/17 05:55 MPV 8.3 fl (7.2-11.7) 03/18/17 17:38 Neut % (Auto) 62.8 % (50.0-75.0) 03/18/17 17:38 Lymph % (Auto) 24.0 % (20.0-40.0) 03/18/17 17:38 [place] % (Auto) 10.3 % (0.0-10.0) H 03/18/17 17:38 Eos % (Auto) 2.2 % (0.0-4.0) 03/18/17 17:38 Baso % (Auto) 0.7 % (0.0-2.0) 03/18/17 17:38 Neut # 8.3 K/uL (1.8-7.0) H 03/18/17 17:38 Lymph # 3.2 K/uL (1.0-4.3) 03/18/17 17:38 [place] # 1.4 K/uL (0.0-0.8) H 03/18/17 17:38 Eos # 0.3 K/uL (0.0-0.7) 03/18/17 17:38 Baso # 0.1 K/uL (0.0-0.2) 03/18/17 17:38 ESR 61 mm/hr (0-20) H 03/19/17 05:40 APTT 33.6 Seconds (25.6-37.1) 03/23/17 05:55 pO2 18 mm/Hg (30-55) L 03/18/17 17:46 VBG pH 7.37 (7.32-7.43) 03/18/17 17:46 VBG pCO2 46 mmHg (40-60) 03/18/17 17:46 VBG HCO3 23.6 mmol/L 03/18/17 17:46 VBG Total CO2 28.0 mmol/L (22-28) 03/18/17 17:46 VBG O2 Sat (Calc) 30.3 % (40-65) L 03/18/17 17:46 VBG Base Excess 0.8 mmol/L (0.0-2.0) 03/18/17 17:46 VBG Potassium 4.1 mmol/L (3.6-5.2) 03/18/17 17:46 Sodium 134.0 mmol/L (132-148) 03/18/17 17:46 Chloride 98.0 mmol/L (98-107) 03/18/17 17:46 Glucose 125 mg/dL (75-110) H 03/18/17 17:46 Lactate 2.0 mmol/L (0.7-2.1) 03/18/17 17:46 FiO2 21.0 % 03/18/17 17:46 Sodium 143 mmol/l (132-148) 03/23/17 05:55 Potassium 4.1 MMOL/L (3.6-5.0) 03/23/17 05:55 Chloride 114 mmol/L (98-107) H 03/23/17 05:55 Carbon Dioxide 22 mmol/L (22-30) 03/23/17 05:55 Anion Gap 11 (10-20) 03/23/17 05:55 BUN 14 mg/dl (9-20) 03/23/17 05:55 Creatinine 0.9 mg/dL (0.8-1.5) 03/23/17 05:55 Est GFR ( Amer) > 60 03/23/17 05:55 Est GFR (Non-Af Amer) > 60 03/23/17 05:55 POC Glucose (mg/dL) 148 mg/dL (65-110) H 03/25/17 15:44 Random Glucose 112 mg/dL (75-110) H 03/23/17 05:55 Hemoglobin A1c 6.8 % (4.2-6.5) H 03/19/17 06:53 Calcium 8.5 mg/dL (8.4-10.2) 03/23/17 05:55 Total Bilirubin 0.2 mg/dl (0.2-1.3) 03/23/17 05:55 AST 35 U/L (17-59) 03/23/17 05:55 ALT 59 U/L (21-72) 03/23/17 05:55 Alkaline Phosphatase 102 U/L (38-126) 03/23/17 05:55 Total Protein 6.9 G/DL (6.3-8.2) 03/23/17 05:55 Albumin 3.3 g/dL (3.5-5.0) L 03/23/17 05:55 Globulin 3.6 gm/dL (2.2-3.9) 03/23/17 05:55 Albumin/Globulin Ratio 0.9 (1.0-2.1) L 03/23/17 05:55 Triglycerides 111 mg/DL (0-149) 03/19/17 05:40 Cholesterol 94 mg/dL (0-199) 03/19/17 05:40 LDL Cholesterol Direct 33 mg/dL (0-129) 03/19/17 05:40 HDL Cholesterol 28 MG/DL (30-70) L 03/19/17 05:40 TSH 3rd Generation 1.31 mIU/ML (0.46-4.68) 03/19/17 05:40 Venous Blood Potassium 4.1 mmol/L (3.6-5.2) 03/18/17 17:46 Urine Color Yellow (YELLOW) 03/20/17 09:45 Urine Clarity Clear (Clear) 03/20/17 09:45 Urine pH 5.0 (5.0-8.0) 03/20/17 09:45 Ur Specific Reynolds 1.016 (1.003-1.030) 03/20/17 09:45 Urine Protein Negative mg/dL (NEGATIVE) 03/20/17 09:45 Urine Glucose (UA) Neg mg/dL (Normal) 03/20/17 09:45 Urine Ketones Negative mg/dL (NEGATIVE) 03/20/17 09:45 Urine Blood Negative (NEGATIVE) 03/20/17 09:45 Urine Nitrate Negative (NEGATIVE) 03/20/17 09:45 Urine Bilirubin Negative (NEGATIVE) 03/20/17 09:45 Urine Urobilinogen 0.2-1.0 mg/dL (0.2-1.0) 03/20/17 09:45 Ur Leukocyte Esterase Neg Trace/uL (Negative) 03/20/17 09:45 Urine RBC (Auto) < 1 /hpf (0-3) 03/20/17 09:45 Urine Microscopic WBC < 1 /hpf (0-5) 03/20/17 09:45 Vancomycin Trough 12.3 ug/mL (5.0-10.0) H 03/20/17 22:15 Blood Type B POSITIVE 03/18/17 19:54 Antibody Screen Negative 03/18/17 19:54 BBK History Checked Patient has bt 03/18/17 19:54 Discharge Exam - Head Exam Head Exam: NORMOCEPHALIC Discharge Plan - Discharge Medications Prescriptions: Meropenem [Merrem IV] 500 mg IV Q8 #126 pds Vancomycin 1 GM [Vancomycin 1GM in Normal Saline Addvantage] 1 gm IVPB DAILY # 42 bag - Follow Up Plan Condition: STABLE Disposition: TRANSF TO SNF Instructions: Meropenem (By injection), Extended Spectrum Beta Lactamase (GEN)
--- NOTE | 2017-03-26 14:18 | VASCULAR ---
PROCEDURE: PERIPHERALLY INSERTED CENTRAL VENOUS CATHETER INSERTION CLINICAL HISTORY: 81-year-old male requiring terminal carman intravenous antibiotics and status post recent PICC placement and self removal is referred to Interventional Radiology for PICC insertion. COMPARISON: PICC placement performed 03/23/2017 PROCEDURE: 1. Focused ultrasound of the right upper extremity vasculature. 2. Ultrasound-guided access. 3. Insertion of peripherally inserted central venous catheter. 4. Fluoroscopic localization of catheter tip. PRE-PROCEDURE FINDINGS: 1. Patent right basilic vein with some adjacent hematoma. POST-PROCEDURE FINDINGS: 1. Placement of 4 Nepalese single-lumen PICC. 2. Catheter length: 41 cm. 3. Catheter tip at cavoatrial junction. INTERVENTIONAL RADIOLOGIST: Mani Carmona M.D. (the attending was present for the entire procedure.) ANESTHESIA: None. MEDICATION: Lidocaine 1% for local subcutaneous analgesia. COMPLICATIONS: None. PROCEDURE DESCRIPTION AND FINDINGS: The risks, benefits, alternatives and possible complications of the procedure were fully discussed; all questions were answered and informed consent was obtained. The patient was brought into the interventional suite and a pre-procedure 'time-out' was performed. The patient was brought into the interventional suite and a pre-procedure 'time-out' was performed. The patient was placed on the fluoroscopy table in the supine position. The right upper extremity was prepped and draped in the usual sterile fashion. Maximum sterile barrier precautions were maintained throughout the entire procedure. Preliminary ultrasound images of the right upper extremity vasculature demonstrate patency of the right basilic vein. Following subcutaneous infiltration of 1% lidocaine for local analgesia, under ultrasound guidance, a 21-gauge needle was advanced into the right basilic vein with real-time visualization of needle entry. The ultrasound images were permanently recorded and submitted to the PACS. A 0.018 guidewire was advanced centrally to the cavoatrial junction. A 4.5 Nepalese peel-away sheath was advanced over the guidewire. After obtaining length measurement, a 4 [place]e single-lumen PICC was placed with the tip of the catheter at the cavoatrial junction. The total length of the catheter is 41 cm. The hub of the PICC was secured to the skin using a sterile adhesive bandage. The patient tolerated the procedure well without immediate post-procedure complications and was transferred back to the floor in stable condition. IMPRESSION: SUCCESSFUL INSERTION OF RIGHT UPPER EXTREMITY PICC. PICC OK TO USE.
== END 2017-03-25 19:10 | DRG 638 ==
LOC: H.ER 16:06 → H.ERHOLD 18:14 → H.MEDSURG1 21:44
PROVIDERS: ADMIT Internal Medicine; ATTEND Internal Medicine
PROC: 02HV33Z Insertion of Infusion Device into Superior Vena Cava, Percutaneous Approach (ICD-10-PCS; principal; 2017-03-21)
PROC: B518ZZA Fluoroscopy of Superior Vena Cava, Guidance (ICD-10-PCS; 2017-03-21)
PROC: B548ZZA Ultrasonography of Superior Vena Cava, Guidance (ICD-10-PCS; 2017-03-21)
PROC: 3E04329 Introduction of Other Anti-infective into Central Vein, Percutaneous Approach (ICD-10-PCS; 2017-03-21)
DX: E11.69 Type 2 diabetes mellitus with other specified complication (principal); M86.172 Other acute osteomyelitis, left ankle and foot; E11.621 Type 2 diabetes mellitus with foot ulcer; E11.22 Type 2 diabetes mellitus with diabetic chronic kidney disease; N18.3 Chronic kidney disease, stage 3 (moderate); B96.20 Unspecified Escherichia coli [E. coli] as the cause of diseases classified elsewhere; L03.032 Cellulitis of left toe; I12.9 Hypertensive chronic kidney disease with stage 1 through stage 4 chronic kidney disease, or unspecified chronic kidney disease; I25.10 Atherosclerotic heart disease of native coronary artery without angina pectoris; E03.9 Hypothyroidism, unspecified; E78.00 Pure hypercholesterolemia, unspecified; M19.90 Unspecified osteoarthritis, unspecified site; Z53.29 Procedure and treatment not carried out because of patient's decision for other reasons; N40.0 Benign prostatic hyperplasia without lower urinary tract symptoms; Z79.84 Long term (current) use of oral hypoglycemic drugs; Z79.82 Long term (current) use of aspirin; Z98.61 Coronary angioplasty status; Z86.73 Personal history of transient ischemic attack (TIA), and cerebral infarction without residual deficits; Z87.891 Personal history of nicotine dependence